=== PATIENT | female | born 1940 | race Caucasian/White ===

== ENCOUNTER 2020-03-17 12:47 | Observation (INO) | payer MEDICARE, SELFPAY ==
[2020-03-17] VITALS (7 sets, daily range): BP systolic 128–162; BP diastolic 49–67; PULSE 60–88; RESP 15–20; TEMP 36.7–36.9; O2SAT 95–99; BMI 24.2
--- NOTE | ~2020-03-17 | XR_ITS ---
XR wrist LT min 3V DATE: 03/17/2020 13:38 INDICATION: Fall. Left wrist deformity TECHNIQUE: 4 views COMPARISON: None FINDINGS: There is a comminuted intra-articular fracture of the distal radius with approximately 3 mm dorsal displacement and prominent apex anterior angulation with associated prominent dorsal angulati on of the distal radial articular surface. There is laterally displaced fracture of the ulnar styloid process Diffuse osteopenia IMPRESSION: Comminuted intra-articular fracture distal radius with 3 mm dorsal displacement and promi nent dorsal inclination of the distal radial articular surface Fracture of the ulnar styloid process Reviewed, dictated and finalized at location A. IMPRESSION: Comminuted intra-articular fracture distal radius with 3 mm dorsal displacement and prominent dorsal inclination of the distal radial articular choudhury rface Fracture of the ulnar styloid process
--- NOTE | ~2020-03-17 | XR_ITS ---
XR wrist LT 2V DATE: 03/17/2020 16:49 INDICATION: Postoperative reduction examination TECHNIQUE: AP and lateral views COMPARISON: Prereduction 03/17/2020 left wrist FINDINGS: There is reduction of the dorsal displacement at the comminuted intra-articular fracture of the distal radius. However, there is still prominent dorsal in relation of the distal radial articul ar surface. Diminished lateral displacement of the ulnar styloid process. IMPRESSION: Reduction of dorsal displacement of distal radial comminuted intra-articular fracture; pe rsistent dorsal inclination of distal radial articular surface Reviewed, dictated and finalized at location A. IMPRESSION: Reduction of dorsal displacement of distal radial comminuted intra- articular fracture; persistent dorsal inclination of distal radial articular choudhury rface
--- NOTE | ~2020-03-17 | XR_ITS ---
EXAMINATION: XR surgery orthopedic INDICATION: Closed reduction and fixation of the left wrist TECHNIQUE: Two intraoperative fluoroscopic images are submitted for review. Fluoroscopy exposure time was 14.8 seconds. The DAP for this procedure was [id number] [id number]. COMPARISON: 03/17/2020 FINDINGS: Fluoroscopic images demonstrate partially imaged orthopedic hardware in the distal radius. Previously described comminuted fracture of the distal radius and ulnar styloid avulsion are again no ev and not significantly changed. IMPRESSION: 1. Partially imaged orthopedic hardware in the distal radius with distal radius and ulnar fractures a s previously described. Please refer to procedure note for full details. Reviewed, dictated and finalized at location A. IMPRESSION: 1. Partially imaged orthopedic hardware in the distal radius with distal radius and ulnar fractures as previously described. Please refer to procedure note fo r full details.
--- NOTE | ~2020-03-17 | XR_ITS ---
EXAMINATION: XR chest 2V DATE: 03/17/2020 17:58 INDICATION: Atrial fibrillation. Preop. TECHNIQUE: Frontal and lateral views of the chest were obtained. COMPARISON: Chest 2 views 07/01/2018 FINDINGS: Calcified right lung nodules and calcified right hilar lymph nodes are consistent with old granulomatous disease. No pleural effusion or pneumothorax. The heart size is normal. Surgical clips in the right upper quadrant are likely from cholecystectomy. There is a chronic compression fracture of L1. IMPRESSION: 1. No acute cardiopulmonary disease. Reviewed, dictated and finalized at location A.
[2020-03-17] MEDS: MORPHINE SULFATE 4 MG/ML INJ IV PUSH (15:50)
--- NOTE | 2020-03-17 15:52 | ED.UPPEXIN ---
HPI - Extremity Injury (Upper) General Chief Complaint: Extremity Injury, Upper Stated Complaint: fall with lt wrist injury Time Seen by Provider: 03/17/20 14:50 History of Present Illness HPI narrative: Patient is a 79-year-old female who presents the ER with a left wrist injury. Patient was outside of her vehicle with her when she tripped over his leg and fell onto an outstretched hand. Sudden onset pain and deformity from the fall. Did not strike her head or lose consciousness. Is able to extend and flex her fingers but has modest pain. No numbness or tingling. Related Data Home Medications Medication Instructions Recorded Confirmed aspirin 325 mg tablet 325 mg PO DAILY 11/26/19 Allergies Allergy/AdvReac Type Severity Reaction Status Date / Time hydrocodone Allergy Unknown Abdominal Verified 10/18/19 11:26 Pain 1.PERCOCET Allergy Unknown Abdominal Uncoded 10/18/19 11:26 Pain NKFA Allergy Unknown Unknown Uncoded 10/18/19 11:26 OXYCODONE/ACETAMINOPHEN Allergy Unknown Abdominal Uncoded 10/18/19 11:26 (Generic Allergy) Pain Review of Systems Review of Systems: All systems reviewed & are unremarkable except as noted in HPI and below Constitutional: Constitutional: Denies chills, Denies fever(s) and Denies weakness Musculoskeletal: Musculoskeletal: Reports arthralgias Comments: Left wrist deformity Neurologic: Denies syncope, Denies focal weakness and Denies numbness PMF Past Medical History Medical History Chronic pain of left knee History of colon cancer History of depression History of uterine cancer Surgical History Surgical History History of hysterectomy Hx of total knee arthroplasty S/P cholecystectomy S/P colostomy Family History Family History Grandparent Hypertension, Onset Age: 72 Mother Family history of lung cancer Father Family history of malignant neoplasm of brain Other Carcinoma of colon Family history of malignant neoplasm of breast in first degree relative Family history of malignant neoplasm of cervix Social History Social History Smoking status: Never smoker Second hand tobacco smoke exposure: No Alcohol intake: current Drinks per week: 1 Substance use: never Substance use type: does not use Gender identity (if verbalized by the patient): Female Exam Narrative: Exam Narrative: GENERAL: Well-appearing, well-nourished, and in no acute distress. HEAD: Normocephalic, atraumatic. ENT: Mucous membranes moist. CHEST: Clear to auscultation. No respiratory distress. HEART: Regular rate and rhythm. Normal peripheral pulses. EXTREMITIES: Focused exam of the left upper extremity shows deformity at the wrist with normal range of motion of the fingers with flexion extension, normal radial pulse. No tenderness at the elbow with normal range of motion. SKIN: Warm, dry, no rash. NEURO: No focal deficits. Alert and oriented x3. PSYCH: Normal mood and affect. Course Course Emergency Course: Informed of results. Fracture reduced and splinted. Discussed case with Dr. Boggs who recommends admission for surgical fixation in the morning. Hospitalist consulted. Vital Signs Vital signs: Vital Signs Temperature 98.1 F 03/17/20 12:56 Pulse Rate 60 03/17/20 12:56 Respiratory Rate 20 03/17/20 12:56 Blood Pressure 154/53 H 03/17/20 12:56 Pulse Oximetry 99 03/17/20 12:56 Temperature 98.1 F 03/17/20 12:56 Pulse Rate 69 03/17/20 19:30 Respiratory Rate 15 03/17/20 19:30 Blood Pressure 148/49 H 03/17/20 19:30 Pulse Oximetry 96 03/17/20 19:30 Procedures Orthopedic Fracture Reduction Fracture #1: Fracture Reduction date: 03/17/20 Fracture Reduction time: 16:35 Time Out P
[2020-03-17] MEDS: MORPHINE SULFATE 2 MG/ML INJ 1 MG IV PUSH (16:30)
--- NOTE | 2020-03-17 17:38 | WPDANESEPP ---
Anes - Eval Pre Procedure Procedure: ORIF L distal radius fracture Date/Time: 03/17/20 17:38 Surgeon: Paul Preop Diagnosis: Left distal radius fracture Pre Op Diagnosis: fall with lt wrist injury Patient Data Age: 79 Gender: F Height: 1.55 m Weight: 58 kg Last Vital Signs Temp 36.7 C 03/17/20 12:56 Pulse 60 03/17/20 12:56 Resp 20 03/17/20 12:56 BP 154/53 H 03/17/20 12:56 Pulse Ox 99 03/17/20 12:56 Allergies Allergy/AdvReac Type Severity Reaction Status Date / Time hydrocodone Allergy Unknown Abdominal Verified 10/18/19 11:26 Pain 1.PERCOCET Allergy Unknown Abdominal Uncoded 10/18/19 11:26 Pain NKFA Allergy Unknown Unknown Uncoded 10/18/19 11:26 OXYCODONE/ACETAMINOPHEN Allergy Unknown Abdominal Uncoded 10/18/19 11:26 (Generic Allergy) Pain Home Medications Medication Instructions Recorded Confirmed Type aspirin 325 mg tablet 325 mg PO DAILY 11/26/19 History sulfamethoxazole 800 1 tablet PO Q12H #6 tablet 11/26/19 11/26/19 Rx mg-trimethoprim 160 mg tablet Patient hx anesthesia problems: none Family hx anesthesia problems: none PMFSH Past Medical History Medical History Chronic pain of left knee History of colon cancer History of depression History of uterine cancer Surgical History Surgical History History of hysterectomy Hx of total knee arthroplasty S/P cholecystectomy S/P colostomy Family History Family History Grandparent Hypertension, Onset Age: 72 Mother Family history of lung cancer Father Family history of malignant neoplasm of brain Other Carcinoma of colon Family history of malignant neoplasm of breast in first degree relative Family history of malignant neoplasm of cervix Social History Social History Smoking status: Never smoker Second hand tobacco smoke exposure: No Alcohol intake: current Drinks per week: 1 Substance use: never Substance use type: does not use Gender identity (if verbalized by the patient): Female Exam Day of Procedure 03/17/20 17:38 Patient weight: normal Heart: regular rate and rhythm Lungs: clear to auscultation and normal air movement Airway: Mallampati scale Neurological: alert and oriented
--- NOTE | 2020-03-17 17:41 | ECG_ITS ---
Measurements Intervals [place] Rate: 82 P: 96 TN: 157 QRS: -31 QRSD: 86 T: 55 QT: 365 QTc: 427 Interpretive Statements SINUS RHYTHM LEFT AXIS DEVIATION DELAYED PRECORDIAL R/S TRANSITION BASELINE ARTIFACT- I, II, III, AVF, V5-V6 BORDERLINE ECG Electronically Signed On 03-18-2020 7:15:36 CDT by Dino Knott D.O.
[2020-03-17 18:57] LABS: Basophils Percent Auto 0.2 % (0.2-1.2); Hematocrit 37.9 % (37.0-47.0); Hemoglobin 12.3 g/dL (12.0-15.0); Immature Granulocyte Absolute 0.03 K/mm3 (0.00-0.031); Immature Granulocyte Percent A 0.4 % (0-0.5); Lymphocytes Absolute Auto 0.65 K/mm3 (0.9-3.2); Lymphocytes Percent Auto 8.1 % (18.3-44.2); Mean Corpuscular HGB Conc 32.5 g/dl (32-36); Mean Corpuscular Hemoglobin 29.4 pg (26-34); Mean Corpuscular Volume 90.7 fl (80-100); Mean Platelet Volume 10.2 fl (7.4-10.4); Monocytes Absolute Auto 0.4 K/mm3 (0.1-0.6); Monocytes Percent Auto 5.3 % (2.6-8.5); Neutrophils Absolute Auto 6.9 K/mm3 (1.3-6.7); Platelet Count Result 251 k/mm3 (150-375); Red Blood Count 4.18 M/mm3 (4.2-5.4); White Blood Count 8.1 K/mm3 (4.5-10.0)
[2020-03-17 19:07] LABS: INR 1.1; Prothrombin Time 13.5 Seconds (11.1-14.7)
[2020-03-17 19:08] LABS: Partial Thromboplastin Time 27.1 SECONDS (22.3-36.8)
[2020-03-17 19:09] LABS: Blood Urea Nitrogen 12 mg/dL (7-17); Calcium 9.4 mg/dL (8.4-10.2); Carbon Dioxide 26 mmol/L (22-30); Chloride 102 mmol/L (98-107); Estimated CRCL calculation 57 ml/min; Estimated Glomerular Filt Rate > 60; Glucose 118 mg/dL (65-105); Potassium 4.3 mmol/L (3.4-5.0); Sodium 136 mmol/L (137-145)
--- NOTE | 2020-03-17 19:30 | PC.NURSE ---
Assumed care of pt at this time. Report from ODALYS Samuels
--- NOTE | 2020-03-17 20:27 | ADMGEN ---
This patient, Shanthi Grey, was admitted to [facility] Surg Room 306-01 at 2020. Patient/family oriented to hospital policies and general routines including ID bracelet, bed and alarms, visiting hours, pain management, procedures, bathroom and other care routines, personal items, smoking policy, room service/diet, and visiting hours. Valuables list has been completed. Information on how to activate the Rapid Response Team has been discussed. Patient/Family are encouraged to report perceived risks to care and to ask questions if they do not understand what they are told or what they should do.
[2020-03-17] MEDS: ONDANSETRON INJ 4 MG/2 ML VIAL IV PUSH (23:03)
[2020-03-18] VITALS (12 sets, daily range): BP systolic 120–140; BP diastolic 49–64; PULSE 64–84; RESP 12–24; TEMP 36.4–36.9; O2SAT 90–99
--- NOTE | 2020-03-18 07:13 | P.PNAN_ITS ---
Anes - Eval Final PreProcedure Day of Procedure 03/18/20 07:13 Patient weight: normal Heart: regular rate and rhythm Lungs: clear to auscultation Airway: Mallampati scale class II Neurological: alert and oriented Last oral intake: >/= 8 hours ASA classification: III Emergent: no Anesthetic plan: proceed Anesthesia type and monitoring: general LMA and standard monitoring Informed Consent: The patient's anesthetic plan and its attendant risks and b enefits were discussed with the patient/family/POA. Questions were solicited and answers provided to the satisfaction of the patient/family/POA.
--- NOTE | 2020-03-18 07:34 | PM.IMHP ---
H&P: HPI History of Present Illness Chief complaint: distal radius fracture Narrative: Shanthi Grey is a 79 year old female Who fell yesterday at home suffering a left distal radius fracture. She also abraded her right knee. She recently had a left total knee replacement about four months ago. No injury to that knee and no other injury with this. She did not hit her head so there is no loss of consciousness. She does not complain of any neck pain. 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 Review of Systems Constitutional: Constitutional: Reports no additional constitutional complaints, Denies excessive sweating and Denies fatigue Eyes: Eyes: Reports no additional eye complaints ENT: Reports system reviewed and no additional complaints, except as documented Cardiovascular: Cardiovascular: Denies chest pain at rest and Denies dyspnea Respiratory: Respiratory: Reports no additional respiratory complaints and Denies dyspnea Gastrointestinal: Gastrointestinal: Reports no additional gastrointestinal complaints Musculoskeletal: Musculoskeletal: Reports as per HPI Integumentary/Breasts: Skin/Breast: Reports system reviewed and no additional complaints, except as docu Neurologic: Reports as per HPI Endocrine: Endocrine: Denies excessive sweating and Denies fatigue Hematologic/Lymphatic: Hematologic/Lymphatic: Denies easy bleeding and Denies easy bruising PMFSH Past Medical History Medical History (Updated 03/18/20 @ 07:39 by Eliot Miller MD) Chronic pain of left knee History of colon cancer History of depression History of uterine cancer Surgical History Surgical History (Updated 03/18/20 @ 07:36 by Eliot Miller MD) History of hysterectomy Hx of total knee arthroplasty bilateral S/P cholecystectomy S/P colostomy Family History Family History Grandparent Hypertension, Onset Age: 72 Mother Family history of lung cancer Father Family history of malignant neoplasm of brain Other Carcinoma of colon Family history of malignant neoplasm of breast in first degree relative Family history of malignant neoplasm of cervix Sibling Tongue cancer Social History Social History Smoking status: Never smoker Second hand tobacco smoke exposure: No Alcohol intake: current Drinks per week: 3 Substance use: never Substance use type: does not use Gender identity (if verbalized by the patient): Female Sexual Orientation (if Verbalized by the Patient): Straight or Heterosexual Spiritual care concerns: No Meds Home Medications and Allergies Home Medications Medication Instructions Recorded Confirmed Type Calcium 600 + D(3) 1 tab-cap PO DAILY 03/17/20 03/17/20 History Glucosamine Chondroitin PLUS 1 cap PO DAILY 03/17/20 03/17/20 History ibuprofen 400 mg PO HS PRN 03/17/20 03/17/20 History ak-nw-SU-vit H-kbmfm-[id number]-[id number] 1 cap PO DAILY 03/17/20 03/17/20 History [Daily Multivitamin] paroxetine HCl 10 mg PO DAILY 03/17/20 03/17/20 History risperidone 0.25 mg PO BID 03/17/20 03/17/20 History Allergies Allergy/AdvReac Type Severity Reaction Status Date / Time hydrocodone Allergy Unknown Abdominal Verified 10/18/19 11:26 Pain oxycodone Allergy Abdominal Verified 03/18/20 00:29 Pain Vital Signs Vital Signs - 24 hr 03/17/20 12:56 03/17/20 16:32 03/17/20 18:32 Temperature 98.1 F Pulse Rate 60 69 76 Respiratory Rate 20 18 15 Blood Pressure 154/53 H 152/67 H 149/60 H Pulse Oximetry 99 97 96 03/17/20 19:30 03/17/20 20:13 03/17/20 20:20 Temperature 98.5 F Pulse Rate 69 88 69 Respiratory Rate 15 15 16 Blood Pressure 148/49 H 128/49 L 162/65 H Pulse Oxi
--- NOTE | 2020-03-18 07:50 | WPDANESPNB ---
Anes - Peripheral Nerve Block Date/Time: 03/18/20 07:50 I have discussed with the patient/family/POA the placement of a peripheral nerve block for post-operative pain management, including associated risks, benefits, complications, and side effects. Alternative methods of post-operative analgesia were detailed. Questions were solicited and answers provided to the satisfaction of the patient/family/POA. Time-Out: A pre-procedural Time-Out was completed immediately before starting the procedure and confirmed: Patient Identification, Site, Procedure, Patient Position and the Availability of Requisite Equipment. Clinical Indications: Acute post-operative pain management requested by the operative surgeon. Nerve Block Insertion Note Anes-nerve block: supraclavicular left Patient position: other (sitting) Skin prep: chlorhexidine Needle: 22 gauge, stimulating, insulated echogenic needle. Needle length: 50 mm Technique: nerve stimulation lost at (mA) (0.3) and ultrasound Injectate: bupivacaine 0.5% with epi 5 mcg/ml (30ml) and dexamethasone (mg) (4) Observations: tolerated well Complications: none Procedure start time:: 734 Procedure end time:: 742
--- NOTE | 2020-03-18 08:04 | PM.IMCN ---
Assessment and Plan Assessment and plan (1) Distal radius fracture, left: Qualifiers: Encounter type: initial encounter Fracture morphology: other intra-articular Fracture type: closed Qualified Code(s): S52.572A - Other intraarticular fracture of lower end of left radius, initial encounter for closed fracture Code(s): S52.502A - Unspecified fracture of the lower end of left radius, initial encounter for closed fracture Status: Acute (2) Fracture of ulnar styloid: Code(s): S52.613A - Displaced fracture of unspecified ulna styloid process, initial encounter for closed fracture Status: Acute (3) History of depression: Code(s): Z86.59 - Personal history of other mental and behavioral disorders Status: Acute HPI Data of Consult Consult date: 03/18/20 Requesting Physician: Eliot Miller MD Primary Care Provider: Santos Em MD Consult Narrative Narrative: Shanthi Grey is a 79 year old female Review of Systems Review of Systems: All systems reviewed & are unremarkable except as noted in HPI and below PMFSH Past Medical History Medical History (Updated 03/18/20 @ 08:06 by Roseann Cabrera PA-C) Chronic pain of left knee History of colon cancer History of depression History of uterine cancer Postoperative atrial fibrillation Surgical History Surgical History (Updated 03/18/20 @ 08:06 by Roseann Cabrera PA-C) History of hysterectomy Hx of hernia repair Hx of total knee arthroplasty bilateral S/P cholecystectomy S/P colostomy Family History Family History Grandparent Hypertension, Onset Age: 72 Mother Family history of lung cancer Father Family history of malignant neoplasm of brain Other Carcinoma of colon Family history of malignant neoplasm of breast in first degree relative Family history of malignant neoplasm of cervix Sibling Tongue cancer Social History Social History Smoking status: Never smoker Second hand tobacco smoke exposure: No Alcohol intake: current Drinks per week: 3 Substance use: never Substance use type: does not use Gender identity (if verbalized by the patient): Female Sexual Orientation (if Verbalized by the Patient): Straight or Heterosexual Spiritual care concerns: No Meds Home Medications and Allergies Home Medications Medication Instructions Recorded Confirmed Type Calcium 600 + D(3) 1 tab-cap PO DAILY 03/17/20 03/17/20 History Glucosamine Chondroitin PLUS 1 cap PO DAILY 03/17/20 03/17/20 History ibuprofen 400 mg PO HS PRN 03/17/20 03/17/20 History rq-io-YM-vit Z-jdmud-pmg-coQ10 1 cap PO DAILY 03/17/20 03/17/20 History [Daily Multivitamin] paroxetine HCl 10 mg PO DAILY 03/17/20 03/17/20 History risperidone 0.25 mg PO BID 03/17/20 03/17/20 History Allergies Allergy/AdvReac Type Severity Reaction Status Date / Time hydrocodone Allergy Unknown Abdominal Verified 10/18/19 11:26 Pain oxycodone Allergy Abdominal Verified 03/18/20 00:29 Pain Vital Signs Vital Signs - 24 hr 03/17/20 12:56 03/17/20 16:32 03/17/20 18:32 Temperature 98.1 F Pulse Rate 60 69 76 Respiratory Rate 20 18 15 Blood Pressure 154/53 H 152/67 H 149/60 H Pulse Oximetry 99 97 96 03/17/20 19:30 03/17/20 20:13 03/17/20 20:20 Temperature 98.5 F Pulse Rate 69 88 69 Respiratory Rate 15 15 16 Blood Pressure 148/49 H 128/49 L 162/65 H Pulse Oximetry 96 95 99 03/17/20 22:00 03/18/20 06:00 Temperature 98.5 F 97.8 F Pulse Rate 69 69 Respiratory Rate 16 16 Blood Pressure 162/65 H 120/49 L Pulse Oximetry 99 96 Exam Narrative: Exam Narrative: General: 79-year-old woman laying flat in bed. Appears comfortable. In no acute distress. Skin: No jaundice or cyanosis. Good skin turgor. Neck: Full range of motion. Supple. Nontender. Respirat
[2020-03-18] MEDS: BUPIVACAINE/EPINEPHRINE 0.25% 50 ML VIAL INFILTRATE (08:17)
[2020-03-18] MEDS: LACTATED RINGERS 1,000 ML 30 ML IV CONT (08:48)
--- NOTE | 2020-03-18 09:03 | P.OP_ITS ---
Procedure Note - Detailed Date of procedure: 03/18/20 Pre-op diagnosis: distal radius fracture Comminuted intra-articular left distal radius fracture Post-op diagnosis: same Procedure performed: Closed reduction and stabilization left distal radius fracture with external fixator device Description of procedure: The patient was identified and proper site identified. In the preoperative holding area anesthesia team performed a left upper extremity block. She was then taken to the operating room and transferred to the OR table placing her supine taking care to pad her torso and extremities. She was administered IV sedation. A nonsterile tourniquet was placed high on the left arm but was not used. The left upper extremity was prepped and draped in the usual sterile fashion. Several cc of 0.25% Marcaine and epinephrine solution was infiltrated into the subcutaneous tissue in the area of the pin sites over the distal forearm and dorsum of the hand as well as a small amount into the fracture site for a supplemental hematoma block. Under fluoroscopic visualization the fracture was examined. It was able to be lined up very nicely with very little distraction. Once this was accomplished, it was easy to see the prior fracture deformity with some residual dorsal tilt and slight loss of length and inclination. A short incision was made over the dorsal radial aspect of the distal radial shaft. Subcutaneous tissue was bluntly dissected protecting neurovascular structures. Using the pin guides, two pins from the [employer] ex Fix set were placed into the forearm. Under fluoroscopic control. The wound was irrigated and skin edges reapproximated with three 0 nylon suture. The same procedure was done over the second metacarpal shaft dorsal radially and with fluoroscopic visualization. Once the pins were in and the wounds were closed, the external fixator device was positioned and secured holding the fracture in the most reduced position, also with fluoroscopic assistance. Sterile dressing was applied the left upper extremity. She tolerated the procedure well and was taken back to the recovery area in stable condition. There were no known intra op complications. Estimated blood loss was negligible. She received perioperative antibiotics. Anesthesia: MAC and regional Surgeon: Eliot Miller MD Computer Discovery Teacher: Adilson Jacobs Estimated blood loss (mL): 2 Tourniquet time (min): 0 Drains: No Packing: No Pathology: none sent Complications: No immediate complications Condition: stable Disposition: PACU
--- NOTE | 2020-03-18 10:32 | SUR.OPER ---
pt received 2g ancef preoperatively ivpb given by power digger operator
[2020-03-18] MEDS: THERAPEUTIC MULTIVITAMINS/MINERALS TAB (*BKC) 1 TABLET PO (11:12)
[2020-03-18] MEDS: DOCUSATE SODIUM 100 MG CAPSULE PO (11:12)
[2020-03-18] MEDS: ASPIRIN 325 MG ENTERIC TABLET PO (11:12)
[2020-03-18] MEDS: FAMOTIDINE 20 MG TABLET PO (11:13)
== END 2020-03-18 16:30 | disposition home or self-care (01) ==
LOC: ANHED 18:59 → ANH3MEDSUR 19:49
PROVIDERS: Admitting Provider Orthopaedic Surgery; Emergency Provider Emergency Medicine; PCP Family Medicine; Visit Provider Orthopaedic Surgery
PROC: (CPT 20690; principal; 2020-03-18 07:30)
DX: S52.572A Other intraarticular fracture of lower end of left radius, initial encounter for closed fracture (principal); S52.612A Displaced fracture of left ulna styloid process, initial encounter for closed fracture; W01.0XXA Fall on same level from slipping, tripping and stumbling without subsequent striking against object, initial encounter; G89.18 Other acute postprocedural pain; Z79.899 Other long term (current) drug therapy; Z85.038 Personal history of other malignant neoplasm of large intestine; Z85.42 Personal history of malignant neoplasm of other parts of uterus; Z87.81 Personal history of (healed) traumatic fracture; Z96.653 Presence of artificial knee joint, bilateral
CPT/HCPCS: 20690; 25605; 64415; 36415; 71046; 73100; 73110; 80048; 85025; 85610; 85730; 93005; 96361; 96365; 96367; 96374; 96375; 96376; 99285; A9270; C1713; G0378; J0131; J0690; J1100; J2250; J2270; J2405; J2704; J3010; J7120

== ENCOUNTER → 2020-11-07 10:34 | Outpatient (CLI) | payer MEDICARE, SELFPAY ==
--- NOTE | ~2020-11-07 | MM_ITS ---
EXAMINATION: MM screening [facility] BI w [place] HISTORY: Screening mammogram TECHNIQUE: Craniocaudal and mediolateral oblique 3-D tomosynthesis images were obtained and synthetic 2-D images were generated. CAD analysis was submitted and interpreted. COMPARISON: 09/21/2019, 08/13/2018, 07/30/2017 BREAST PARENCHYMAL COMPOSITION: There are scattered areas of fibroglandular density. FINDINGS: RIGHT BREAST: An asymmetry is present in the middle third of the upper breast best appreciated 5.5 cm from the nipple on the mediolateral oblique view. LEFT BREAST: There is no evidence of suspicious mass, calcification, or architectural distortion to s uggest malignancy. There has been no significant interval change. IMPRESSION: 1. Right breast asymmetry. 2. Additional mammographic views and possible breast ultrasound are recommended. BI-RADS Category 0: Incomplete: Needs additional imaging evaluation. Reviewed, dictated and finalized at location A. ON GUARD SUPERVISOR IMPRESSION: 1. Right breast asymmetry. 2. Additional mammographic views and possible breast ultrasound are recommended . BI-RADS Category 0: Incomplete: Needs additional imaging evaluation.
== END ==
PROVIDERS: PCP Family Medicine; Visit Provider Family Medicine
DX: Z12.31 Encounter for screening mammogram for malignant neoplasm of breast (principal); R92.8 Other abnormal and inconclusive findings on diagnostic imaging of breast
CPT/HCPCS: 77063; 77067

== ENCOUNTER → 2020-11-30 08:42 | Outpatient (CLI) | payer MEDICARE, SELFPAY ==
--- NOTE | ~2020-11-30 | MMUS_ITS ---
EXAMINATION: MM diagnostic mammo unilat RT, US breast RT limited HISTORY: Right breast asymmetry on screening mammogram TECHNIQUE: Additional 3-D tomosynthesis images of the right breast were performed and synthetic 2-D i mages were generated. CAD analysis was submitted and interpreted. High resolution limited right breas t ultrasound was performed. COMPARISON: 11/07/2020, 09/21/2019, 08/13/2018 FINDINGS: MAMMOGRAPHIC FINDINGS: No discrete mass, architectural distortion, or suspicious calcification is identified with spot compr ession views of the breast. ULTRASOUND: No sonographic correlate is identified for the mammographic finding in question. There are benign radha earing intramammary lymph nodes in the far outer breast at the 9:00 location. IMPRESSION: 1. No mammographic or sonographic evidence of malignancy. 2. Recommend routine screening mammography in one year. BI-RADS Category 1: Negative Reviewed, dictated and finalized at location A. NIGHT STOCKER IMPRESSION: 1. No mammographic or sonographic evidence of malignancy. 2. Recommend routine screening mammography in one year. BI-RADS Category 1: Negative
== END ==
PROVIDERS: PCP Family Medicine; Visit Provider Family Medicine
DX: R92.8 Other abnormal and inconclusive findings on diagnostic imaging of breast (principal)
CPT/HCPCS: 76642; 77065

== ENCOUNTER → 2021-11-09 14:51 | Outpatient (CLI) | payer MEDICARE, SELFPAY ==
--- NOTE | ~2021-11-09 | MM_ITS ---
EXAMINATION: MM screening sherri BI w constantino HISTORY: Screening TECHNIQUE: Craniocaudal and mediolateral oblique 3-D tomosynthesis images were obtained and synthetic 2-D images were generated. CAD analysis was submitted and interpreted. COMPARISON: Comparison to multiple prior studies sequentially, with oldest reviewed study dated 02/2016. BREAST PARENCHYMAL COMPOSITION: Breast composed of scattered areas of fibroglandular density FINDINGS: There are developing irregular shaped masses in the upper outer quadrant of the right breas t, middle third and lower central left breast, middle third. There are no suspicious calcifications o r architectural distortion. IMPRESSION: 1. Developing bilateral breast masses. 2. Additional mammographic views and possible breast ultrasound are recommended. BI-RADS Category 0: Incomplete: Needs additional imaging evaluation. Reviewed, dictated and finalized at location A. LINER IMPRESSION: 1. Developing bilateral breast masses. 2. Additional mammographic views and possible breast ultrasound are recommended . BI-RADS Category 0: Incomplete: Needs additional imaging evaluation.
== END ==
PROVIDERS: PCP Family Medicine; Visit Provider Family Medicine
DX: Z12.31 Encounter for screening mammogram for malignant neoplasm of breast (principal); R92.8 Other abnormal and inconclusive findings on diagnostic imaging of breast
CPT/HCPCS: 77063; 77067

== ENCOUNTER → 2021-11-26 09:15 | Outpatient (CLI) | payer MEDICARE, SELFPAY ==
--- NOTE | ~2021-11-26 | MMUS_ITS ---
EXAMINATION: MM diagnostic sherri BI w constantino, US breast LT complete, US breast RT limited HISTORY: Developing bilateral breast masses reported on November 09, 2021 screening mammogram TECHNIQUE: Additional 3-D tomosynthesis images of both breasts were performed and synthetic 2-D image s were generated. CAD analysis was submitted and interpreted. High resolution right upper and lower o uter quadrant breast ultrasound and left complete breast ultrasound examination were performed. COMPARISON: November 09, 2019 bilateral screening mammogram November 30, 2020 diagnostic right mammogram and limited right breast ultrasound November 07, 2020 bilateral screening mammogram FINDINGS: MAMMOGRAPHIC FINDINGS: There is nodular appearing fibroglandular stroma of the breasts with possible masses suggested in the mid to upper outer right breast and lower mid left breast. Bilateral breast ultrasound examination w as performed. ULTRASOUND: Right breast: 9:00 10 cm from nipple: Mildly irregular slightly spiculated 3.8 x 4.4 mm x 4.7 mm mass with internal vascularity. This lesion is suspicious. Ultrasound-guided biopsy is recommended. There is an adjacent 3.8 x 4.9 x 6.4 mm lymph node. 10:00 7 cm from nipple: 2.0 x 2.4 mm parallel hypoechoic lesion without internal vascularity or poste rior shadowing Left breast: 5:00 1 cm from nipple: 3.6 x 2.9 x 3.6 mm mildly irregular incompletely circumscribed hypoechoic lesi on without internal vascularity or shadowing. Ultrasound-guided biopsy is recommended. IMPRESSION: 1. Bilateral suspicious abnormality 2. Ultrasound-guided biopsy is recommended for right breast 9:00 lesion and left breast 5:00 lesion. BI-RADS category 4, suspicious findings. Dr. Lorenzana telephoned the report and ultrasound-guided biopsy recommendation for both breasts on 2021 at 1038 hours to Nayely, Nurse Practitioner. Reviewed, dictated and finalized at location A. NUT COOKER IMPRESSION: 1. Bilateral suspicious abnormality 2. Ultrasound-guided biopsy is recommended for right breast 9:00 lesion and lef t breast 5:00 lesion. BI-RADS category 4, suspicious findings. Dr. Lorenzana telephoned the report and ultrasound-guided biopsy recommendation for both breasts on November 26, 2021 at 1038 hours to Nayely Nurse Practitioner. IMPRESSION: 1. Bilateral suspicious abnormality 2. Ultrasound-guided biopsy is recommended for right breast 9:00 lesion and lef t breast 5:00 lesion. BI-RADS category 4, suspicious findings. Dr. Lorenzana telephoned the report and ultrasound-guided biopsy recommendation for both breasts on November 26, 2021 at 1038 hours to Nayely Nurse Practitioner.
== END ==
PROVIDERS: PCP Family Medicine; Visit Provider Physician Assistant
DX: R92.8 Other abnormal and inconclusive findings on diagnostic imaging of breast (principal); N63.11 Unspecified lump in the right breast, upper outer quadrant; N63.23 Unspecified lump in the left breast, lower outer quadrant
CPT/HCPCS: 76641; 76642; 77062; 77066; G0279

== ENCOUNTER 2021-12-11 09:12 | Outpatient (CLI) | payer MEDICARE, SELFPAY ==
--- NOTE | ~2021-12-11 | US_ITS ---
US breast BI limited 12/11/2021 10:05 Indication: Bilateral breast masses demonstrated on prior examination. Biopsy requested. Procedure: High-resolution Limited bilateral breast ultrasound Comparison: Ultrasound dated 11/26/2021 Findings: In the left breast at 5:00, 1 cm from the nipple there is an oval circumscribed hypoechoic mass with parallel orientation, subtle posterior acoustic enhancement and low-level internal echoes. No internal vascularity. In the right breast at 9:00, 10 cm from the nipple there are 2 adjacent oval hypoechoic masses with echogenic hilum, largest measuring 5 mm, this likely benign intramammary lymp h nodes. Masses in both breasts are most likely benign and therefore biopsy canceled. Short-term foll ow-up ultrasound in 6 months recommended. Impression: 1: Probable benign bilateral breast masses. BI-RADS CATEGORY 3-PROBABLY BENIGN FINDING RECOMMENDATION: Six-month follow-up diagnostic bilateral mammogram and limited bilateral breast ultra sound recommended. Reviewed, dictated and finalized at location A. TRANSIT DRIVER Impression: 1: Probable benign bilateral breast masses. BI-RADS CATEGORY 3-PROBABLY BENIGN FINDING RECOMMENDATION: Six-month follow-up diagnostic bilateral mammogram and limited bilateral breast ultrasound recommended.
== END 2021-12-11 09:13 | disposition home or self-care (01) ==
LOC: ANHIMG 09:14
PROVIDERS: PCP Family Medicine; Visit Provider Nurse Practitioner Family
DX: N63.23 Unspecified lump in the left breast, lower outer quadrant (principal); N63.15 Unspecified lump in the right breast, overlapping quadrants
CPT/HCPCS: 76642

== ENCOUNTER → 2022-06-13 08:41 | Outpatient (CLI) | payer MEDICARE, SELFPAY ==
--- NOTE | ~2022-06-13 | MMUS_ITS ---
EXAMINATION: MM diagnostic sherri BI w constantino, US breast BI limited HISTORY: Six-month follow-up of probable benign bilateral breast masses, on the left at 5:00 1 cm fro m the nipple and on the right at 9:00 10 cm from the nipple TECHNIQUE: Full field and spot ML, MLO and CC 3-D tomosynthesis images of both breasts were performed and synthetic 2-D images were generated. CAD analysis was submitted and interpreted. High resolution bilateral upper outer and lower-outer quadrant breast ultrasound was performed. COMPARISON: 12/11/2021 bilateral Limited breast ultrasound To bilateral diagnostic mammography and bilateral breast ultrasound 11/2021 bilateral screening mammogram BREAST PARENCHYMAL COMPOSITION: There are scattered areas of fibroglandular density. FINDINGS: MAMMOGRAPHIC FINDINGS: Left breast: There is an irregular hypodensity approximately 3 x 4.5 mm opacity in the lower outer le ft breast at mid depth (craniocaudal Tomosynthesis image 27/60; MLO Tomosynthesis image 27/60, MLO To mosynthesis image 20/54). No suspicious reproducible mass or architectural distortion, malignant constipation, skin thickening or retraction or significant new or developing density of either breast is noted otherwise. ULTRASOUND: Left breast: 5:00 areolar area: Irregular approximately 5 mm hypoechoic area; ultrasound-guided biopsy is recommen ded. Right breast: 9:00 10 cm from nipple: Parallel circumscribed 4 x 5 x 4.8 mm and 3.6 x 5.6 x 7 mm benign-appearing l ymph nodes. IMPRESSION: 1. Irregular approximately 5 mm hypoechoic lesion at left breast 5:00 1 cm from nipple 2. Ultrasound-guided biopsy of left breast 5:00 lesion is recommended; post biopsy mammogram after ma rker placement is recommended to correlate with the mammogram to determine if this sonographic lesion corresponds to the small irregular mammographic opacity at mid depth in the lower outer quadrant of the left breast BI-RADS category 4, suspicious findings. Dr. Lorenzana telephoned the report and ultrasound-guided biopsy recommendation on 06/2022 at 1030 hours shirlene Barfield, Stitch Bonding Machine Tender Reviewed, dictated and finalized at location A. IMPRESSION: 1. Irregular approximately 5 mm hypoechoic lesion at left breast 5:00 1 cm from nipple 2. Ultrasound-guided biopsy of left breast 5:00 lesion is recommended; post bio psy mammogram after marker placement is recommended to correlate with the mammo gram to determine if this sonographic lesion corresponds to the small irregular mammographic opacity at mid depth in the lower outer quadrant of the left all st BI-RADS category 4, suspicious findings. Dr. Lorenzana telephoned the report and ultrasound-guided biopsy recommendation on at 1030 hours to Frederick Barfield
== END ==
PROVIDERS: PCP Family Medicine; Visit Provider Physician Assistant
DX: R92.8 Other abnormal and inconclusive findings on diagnostic imaging of breast (principal); N63.23 Unspecified lump in the left breast, lower outer quadrant
CPT/HCPCS: 76642; 77062; 77066; G0279

== ENCOUNTER 2022-07-02 09:06 | Outpatient (CLI) | payer MEDICARE, SELFPAY ==
--- NOTE | ~2022-07-02 | US_ITS ---
EXAMINATION: US GUIDED NEEDLE BIOPSY DATE: 07/02/2022 10:27 CDT INDICATION: Left breast 5 mm irregular mass at 5:00 TECHNIQUE AND FINDINGS: The risks and potential benefits of the procedure were discussed with the patient, and written inform ed consent was obtained. Timeout procedure was performed. After sterile preparation of the left breas t, 1% lidocaine was utilized for local anesthesia. A 14G spring-loaded biopsy gun needle was advanced to the edge of the region of interest from a later al approach utilizing sonographic guidance. A total of 4 tissue core samples were obtained through t he lesion. An Inrad tissue marker clip was then placed at the biopsy site. Hemostasis was achieved. A sterile bandage was applied. The patient tolerated procedure well and there was no evidence of immediate complication. The patien t was given verbal instructions prior to departing from the department. A two view mammogram was perf ormed to document tissue marker clip placement. The tissue samples were submitted to surgical patholo gy for histologic analysis. IMPRESSION: 1. Successful ultrasound guided biopsy of left 5:00 breast mass with biopsy marker placement. Please refer to pathology report for histologic analysis. Reviewed, dictated and finalized at Location A. Reviewed, dictated and finalized at location A. IMPRESSION: 1. Successful ultrasound guided biopsy of left 5:00 breast mass with biopsy ma rker placement. Please refer to pathology report for histologic analysis.
--- NOTE | ~2022-07-02 | MM_ITS ---
MM post biopsy invasive LT DATE: 07/02/2022 10:17 INDICATION: Post ultrasound-guided biopsy of left 5:00 lesion TECHNIQUE: Digital ML and CC views of left breast COMPARISON: None FINDINGS: A biopsy marker is present in the lower central left breast IMPRESSION: Status post ultrasound-guided biopsy of 5:00 left breast sonographic hypoechoic 5 mm lesi on Reviewed, dictated and finalized at Location A. Reviewed, dictated and finalized at location A. IMPRESSION: Status post ultrasound-guided biopsy of 5:00 left breast sonographi c hypoechoic 5 mm lesion
== END 2022-07-02 09:07 | disposition home or self-care (01) ==
PROVIDERS: PCP Family Medicine; Visit Provider Surgery
DX: C50.012 Malignant neoplasm of nipple and areola, left female breast (principal)
CPT/HCPCS: 19083; 88305; 88342; 88360; A4648

== ENCOUNTER 2022-08-21 00:49 | Day surgery (SDC) | payer MEDICARE, SELFPAY ==
[2022-08-08 13:58] VITALS: BMI 23.8
--- NOTE | 2022-08-08 14:14 | PC.NURSE ---
PRE-OP INSTRUCTIONS, PLEASE READ CAREFULLY Report to the Outpatient Waiting Room, entrance under the green pavilion located off [facility], at time _1030_ on date _08/21/22_. Planned Procedure Time: _1:30 PM_. Time changes happen often and if your time is changed the preop area will call you the afternoon before. - You and your visitor will be asked to self-screen and do not enter if you have any COVID symptoms. - We encourage only one visitor and NO visitors under age 16 are allowed at this time. Your visitor will receive communication by the phone number that is given day of service. - The patient visitor is requested to social distance or may leave the building when not with patient due to restrictions. - A mask is required within the hospital. Patients may have clear liquids (water, carbonated beverages, clear teas, apple juice) until 3 hours prior to surgery (1030 AM) with a maximum of 20 ounces. - No food from midnight until time of surgery Take the following medications with a SIP of water the morning of surgery: _NONE_ Medications to discontinue per physician _VITAMINS/SUPPLEMENTS 3 DAYS PRIOR TO SURGERY, Date to take last dose 08/17/22_ Please no make-up, nail sammarinese, hairspray, perfume, deodorant, or body powder the day of surgery. No jewelry (including any body piercings) or valuables the day of surgery, leave them at home. Please take a shower or bath the night before, or the morning of, surgery with an antibacterial soap. Wear comfortable, loose fitting clothing. Children are encouraged to wear pajamas. - Jewelry must be removed prior to entering the operating room. Rings and piercings that are not removed may be cut off. - The hospital will not accept responsibility for valuables. - Please leave all valuables, including medications, at home the day of surgery. If you are going home after surgery, a licensed rickshaw driver must drive you home. - NO public transportation without another adult. - We recommend that an adult stay with you for 24 hours following discharge. - We also recommend that you do not drive, make important decision, drink alcoholic beverages, or take any drugs that were not prescribed by your health care provider for at least 24 hours after your discharge time. Follow any additional instructions given to you from your surgeon. BARBARA SHOWER AM OF SURGERY If you or anyone in your household have experienced Covid symptoms in the past week, please notify your surgeon or the nurse liaison at the phone number below for possible testing. Telephone instructions given to PT and asked if any additional questions and then verbalized understanding. Patient advised to call surgeon office or pre surgery nurse liaison [phone] if any additional questions.
[2022-08-21] VITALS (9 sets, daily range): BP systolic 139–159; BP diastolic 52–72; PULSE 55–74; RESP 16–22; TEMP 36.5; O2SAT 96–100
--- NOTE | ~2022-08-21 | MM_ITS ---
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 TECHNIQUE: The procedure for a mammography-guided needle localization was discussed with the patient' s. Risks and benefits were detailed, including risks of bleeding, infection, pain, and nondiagnostic specimen. The patient verbalized understanding and agreed to proceed. The time out was performed to verify the patient's name, date of , and site of procedure. The p atient was placed in left breast compression, and the skin overlying the left breast was prepped in u sual fashion. Utilizing mammography guidance, a needle was advanced into the left breast. Two confi rmatory films were obtained. The patient tolerated procedure without immediate complication. A specimen radiograph was performed. FINDINGS: Two view confirmatory films of the left breast demonstrate a the wire adjacent to the tissu e marker. The tissue marker is contained within the surgical specimen.] IMPRESSION: 1. Successful mammography-guided left breast needle localization. Reviewed, dictated and finalized at location A. ENGINEERING TEACHER IMPRESSION: 1. Successful mammography-guided left breast needle localization.
--- NOTE | 2022-08-21 07:26 | WPDANESEPPF ---
Anes - Initial Pre Proc Eval Procedure: Operation Date: 08/21/22 13:30 Proposed Procedures p Left Breast Lumpectomy with [place] Lymph Node Biopsy - Dany Warner DO s Ultrasound and/or Mammogram Guided Needle Localization Left Breast - Dany Warner DO Date/Time: 08/21/22 07:26 Surgeon: Dany Warner DO Pre Op Diagnosis: Lt Breast CA Patient Data Age: 81 Gender: F Height: 1.56 m Weight: 58.18 kg Allergies Allergy/AdvReac Type Severity Reaction Status Date / Time No Known Allergies Allergy Verified 08/21/22 10:44 Home Medications Medication Instructions Recorded Confirmed Type calcium carb-ergocalciferol (vit 1 tablet PO QAM 08/08/22 08/21/22 History D2) 600 mg calcium-200 unit tablet glucosamine sulf dipot 1 cap PO QAM 08/08/22 08/21/22 History chlr,msm,chond 550 mg-C 30 mg-shad 1 mg capsule (Glucosamine Chondroitin) multivitamin 1 tablet PO QAM 08/08/22 08/21/22 History Patient hx anesthesia problems: none Family hx anesthesia problems: none Results Review: All pre-operative results and documents have been reviewed as part of the pre-operative evaluation. [facility] Past Medical History Medical History (Updated 08/21/22 @ 07:28 by Del Cm MD) Atrial fibrillation postoperative BMI 23.0-23.9, adult Chronic pain of left knee Colorectal cancer History of colon cancer History of depression History of uterine cancer Invasive ductal carcinoma of left breast Postoperative atrial fibrillation Uterine cancer Surgical History Surgical History Distal radius fracture, left External fixator March 2020 History of hysterectomy Hx of hernia repair Hx of total knee arthroplasty bilateral S/P cholecystectomy S/P colostomy Family History Family History Grandparent Hypertension, Onset Age: 72 Mother Family history of lung cancer Father Family history of malignant neoplasm of brain Other Carcinoma of colon Family history of malignant neoplasm of breast in first degree relative Family history of malignant neoplasm of cervix Sibling Tongue cancer Social History Social History (Reviewed 08/12/22 @ 14:27 by MERCY Bobo Social History: Smoking status: Never smoker Second hand tobacco smoke exposure: No Alcohol intake: current Drinks per week: 3 Alcohol use details: PT STATE MAYBE 1-2 DRINKS/MONTH Substance use: never Substance use type: does not use Living arrangements: with family Gender identity (if verbalized by the patient): Female Sexual Orientation (if Verbalized by the Patient): Straight or Heterosexual Spiritual care concerns: No Anes - Eval Final PreProcedure Day of Procedure 08/21/22 07:26 Patient weight: normal Heart: regular rate and rhythm Lungs: clear to auscultation Airway: Mallampati scale class II Neurological: alert and oriented Last oral intake: >/= 8 hours ASA classification: III Emergent: no Anesthetic plan: proceed Anesthesia type and monitoring: general LMA and standard monitoring Results Review: All pre-operative results and documents have been reviewed as part of the pre-operative evaluation. Informed Consent: The patient's anesthetic plan and its attendant risks and benefits were discussed with the patient/family/POA. Questions were solicited and answers provided to the satisfaction of the patient/family/POA.
[2022-08-21] MEDS: ACETAMINOPHEN 500 MG TABLET 1000 MG PO (11:26)
[2022-08-21] MEDS: LACTATED RINGERS 1,000 ML 30 ML IV CONT (11:26)
[2022-08-21] MEDS: ISOSULFAN BLUE 1% INJ 5 ML VIAL SUB-Q (12:17)
[2022-08-21] MEDS: KETOROLAC 15 MG/ML VIAL (*BKC) IV PUSH (12:43)
--- NOTE | 2022-08-21 12:58 | WPDHPUPDATE1 ---
History and Physical Update Update Date/Time: 08/21/22 12:58 History and Physical has been reviewed, including an updated exam of the patient. There are NO changes in the patient's condition. Risks, benefits, and alternatives have been discussed and questions answered. Patient agrees to proceed with procedure.
--- NOTE | 2022-08-21 12:58 | PM.IMHP ---
H&P: HPI History of Present Illness Date/Time: 08/21/22 12:58 Chief Complaint: Left breast cancer Narrative: This is an 81-year-old woman who presents for lumpectomy and sentinel lymph node biopsy. She had a prior abnormal mammogram and underwent needle biopsy which showed evidence of invasive ductal carcinoma. She reports no changes since last seen in the office. Review of Systems Review of Systems: All systems reviewed & are unremarkable except as noted in HPI and below Constitutional: Constitutional: Denies chills, Denies fever(s), Denies headache(s) and Denies weight loss Eyes: Eyes: Denies change in vision ENT: Denies dizziness, Denies headache(s), Denies neck mass and Denies throat swelling Cardiovascular: Cardiovascular: Denies chest pain, Denies lightheadedness and Denies dyspnea Respiratory: Respiratory: Denies cough, Denies dyspnea and Denies wheezing Gastrointestinal: Gastrointestinal: Denies abdominal pain, Denies change in bowel habits, Denies nausea and Denies vomiting Genitourinary: Genitourinary: Denies hematuria and Denies dysuria Musculoskeletal: Musculoskeletal: Reports as per HPI Integumentary/Breasts: Skin/Breast: Reports as per HPI Neurologic: Denies dizziness and Denies headache(s) Allergic/Immunologic: Allergic/Immunologic: Denies throat swelling and Denies wheezing [facility] Past Medical History Medical History (Updated 08/21/22 @ 07:28 by Del Cm MD) Atrial fibrillation postoperative BMI 23.0-23.9, adult Chronic pain of left knee Colorectal cancer History of colon cancer History of depression History of uterine cancer Invasive ductal carcinoma of left breast Postoperative atrial fibrillation Uterine cancer Surgical History Surgical History Distal radius fracture, left External fixator March 2020 History of hysterectomy Hx of hernia repair Hx of total knee arthroplasty bilateral S/P cholecystectomy S/P colostomy Family History Family History Grandparent Hypertension, Onset Age: 72 Mother Family history of lung cancer Father Family history of malignant neoplasm of brain Other Carcinoma of colon Family history of malignant neoplasm of breast in first degree relative Family history of malignant neoplasm of cervix Sibling Tongue cancer Social History Social History Social History: Smoking status: Never smoker Second hand tobacco smoke exposure: No Alcohol intake: current Drinks per week: 3 Alcohol use details: PT STATE MAYBE 1-2 DRINKS/MONTH Substance use: never Substance use type: does not use Living arrangements: with family Gender identity (if verbalized by the patient): Female Sexual Orientation (if Verbalized by the Patient): Straight or Heterosexual Spiritual care concerns: No Meds Home Medications and Allergies Home Medications Medication Instructions Recorded Confirmed Type calcium carb-ergocalciferol (vit 1 tablet PO QAM 08/08/22 08/21/22 History D2) 600 mg calcium-200 unit tablet glucosamine sulf dipot 1 cap PO QAM 08/08/22 08/21/22 History chlr,msm,chond 550 mg-C 30 mg-shad 1 mg capsule (Glucosamine Chondroitin) multivitamin 1 tablet PO QAM 08/08/22 08/21/22 History Allergies Allergy/AdvReac Type Severity Reaction Status Date / Time No Known Allergies Allergy Verified 08/21/22 10:44 Vital Signs Vital Signs - 24 hr 08/21/22 10:56 Temperature 36.5 C Pulse Rate 66 Respiratory Rate 16 Blood Pressure 152/52 H Pulse Oximetry 100 Oxygen Delivery Room Air Exam Const: General: no acute distress and alert Orientation/consciousness: patient oriented x3 HENMT: Head: normocephalic and atraumatic Ears: hearing grossly normal bilaterally Face/Nose/Sinus: Normal nares present Mout
[2022-08-21] MEDS: BUPIVACAINE HCL 0.25% PF 30 ML VIAL INFILTRATE (13:17)
[2022-08-21] MEDS: ceFAZolin 2 GM/D5W 50 ML 2 GM/50 ML BAG IVPB (13:17)
[2022-08-21] MEDS: ONDANSETRON INJ 4 MG/2 ML VIAL IV PUSH (15:34)
--- NOTE | 2022-08-21 16:51 | W.PM.PROC2 ---
Procedure Note - Detailed Date of Procedure 08/21/22 Pre-op Diagnosis Lt Breast CA Post-op Diagnosis Same Procedure Performed Left breast wire localized lumpectomy with left axillary sentinel lymph node biopsy Surgeon Dany Warner, DO Anesthesia General and Local (0.25% bupivacaine with epinephrine) Indications This is an 81-year-old woman who presented with an abnormal mammogram. She had an irregular shaped a 5 mm lesion in the left breast in the 5 o'clock location. An ultrasound-guided left breast biopsy was performed and this showed evidence of invasive ductal carcinoma. Discussions were made with the patient about treatment options and decision was made to proceed with left breast lumpectomy with left axillary sentinel lymph node biopsy. Findings Wire localization was performed by the Radiology Department. Nuclear isotope was then also infiltrated in the periareolar region. Once the patient was back for the procedure under anesthesia, I also infiltrated 4 mL of isosulfan blue in the periareolar region. I reviewed the images from the wire localization and planned for a periareolar incision. The wire was coming out of the skin in the medial breast location, therefore the incision was made along the medial periareolar skin. I then dissected down to the breast tissue until identified the wire. The lumpectomy was then performed and care was taken to stay around the wire while dissecting around the tissue. The specimen was then marked with a short suture superior and long suture lateral. The specimen was sent to Radiology for radiographic confirmation of the marker within the specimen. This was confirmed and then the specimen was sent to pathology. The left axillary sentinel lymph node was identified using the navigator. As I dissected into the deep axillary contents, I eventually was able to identify a blue lymph node in the location of increased uptake with the navigator. The navigator was reading around 700 and once the lymph node was removed the baseline uptake was only around 30-40. No other lymph nodes were identified. Description of Procedure Procedure as well as risks, benefits, and alternatives were discussed with the patient. Written consent was obtained and placed in chart prior to procedure. The patient was brought back to surgical suite. She was placed supine on operating table. Time-out was done to confirm patient and procedure. She was then intubated by the anesthesia department. Isosulfan blue was infiltrated locally around the nipple areola complex. Her left breast and axillary area was prepped and draped in sterile fashion using chlorhexidine prep. 0.25% bupivacaine with epinephrine was infiltrated locally around the location for the lumpectomy. A 4 cm curvilinear incision was made along the medial nipple areola complex using a 15 blade scalpel. Electrocautery was used for hemostasis and for dissection through the subcutaneous tissue down into the breast tissue. I dissected down until identified the wire. The wire was cut and the excess wire that was coming out through the skin was removed. The tissue around the guidewire was then carefully dissected using electrocautery to perform our lumpectomy. This tissue extended to the subareolar region and just lateral to the nipple areola complex. I carefully dissected all around the tissue and took a specimen large enough to allow for adequate margins. The specimen was completely removed and marked with a short suture superior and long suture lateral. It was then sent to Radiology for confirmation of the specimen. The wound bed was then inspected. Hemostasis was achieved with electrocautery. The area was then irrigated with sterile saline. The deep dermis was then reapproximated using 3-0 Vicryl inverted interrupted sutures. Skin was then approximated using 4-0 Monocryl running subcuticular suture. Exofin glue was then applied on top. I then moved my attention over to the lef
== END 2022-08-21 17:12 | disposition home or self-care (01) ==
PROVIDERS: PCP Family Medicine; Visit Provider Surgery
PROC: (CPT 19301; principal; 2022-08-21 13:30)
PROC: (CPT 19301; 2022-08-21 13:30)
DX: C50.912 Malignant neoplasm of unspecified site of left female breast (principal); C77.3 Secondary and unspecified malignant neoplasm of axilla and upper limb lymph nodes; Z85.038 Personal history of other malignant neoplasm of large intestine; Z85.42 Personal history of malignant neoplasm of other parts of uterus
CPT/HCPCS: 19301; 38525; 19281; 76098; 88307; 88342; A9270; C1713; C1769; J0690; J1885; J2405; J2704; J3010; J7120

== ENCOUNTER → 2022-12-16 13:41 | Outpatient (CLI) | payer MEDICARE, SELFPAY ==
--- NOTE | ~2022-12-16 | MM_ITS ---
EXAMINATION: MM screening sherri BI w constantino HISTORY: Screening mammogram TECHNIQUE: Craniocaudal and mediolateral oblique 3-D tomosynthesis images were obtained and synthetic 2-D images were generated. CAD analysis was submitted and interpreted. COMPARISON: Serial mammogram and ultrasound examinations dating back to November 07, 2020 BREAST PARENCHYMAL COMPOSITION: The breasts are heterogeneously dense, which may obscure small masses . FINDINGS: There is asymmetric volume loss and skin thickening of the of the left breast consistent wi th history of left partial mastectomy and radiation treatment. No focal mass or architectural distortion, malignant calcification is evident otherwise. No right ski n thickening or retraction. No significant new or developing density on the right.. IMPRESSION: 1. Status post left partial mastectomy and radiotherapy for breast cancer 2. Recommend routine screening mammography in one year. BI-RADS Category 2: Benign finding(s). Reviewed, dictated and finalized at location A.
== END ==
PROVIDERS: PCP Family Medicine; Visit Provider Internal Medicine Hematology & Oncology
DX: Z12.31 Encounter for screening mammogram for malignant neoplasm of breast (principal)
CPT/HCPCS: 77063; 77067

== ENCOUNTER 2023-03-31 09:44 | Outpatient (CLI) | payer MEDICARE, SELFPAY ==
--- NOTE | ~2023-03-31 | DEXA_ITS ---
Bone Density Report Name: WILIAM CORREA Age: 82 Sex: Female Ethnicity: White Date of : 1940 Indication: postmenopausal; screening for osteoporosis; height loss; prior fracture; cancer; hysterectomy; Referring Provider: MISTY STEVEN Study: Bone densitometry was performed. Exam Date: March 31, 2023 Accession number: [id number] Bone Density: Region BMD T-score Z-score Classification AP Spine(L1-L4) 1.003 -0.4 2.4 Normal Femoral Neck (Left) 0.773 -0.7 1.7 Normal Total Hip (Left) 0.842 -0.8 1.4 Normal Femoral Neck (Right) 0.753 -0.9 1.5 Normal Total Hip (Right) 0.829 -0.9 1.3 Normal Total Hip Mean 0.835 -0.9 1.4 Normal World Health Organization criteria for BMD impression classify patients as: Normal (T-score at or above -1.0), Osteopenia (T-score between -1.0 and -2.5), or Osteoporosis (T-score at or below -2.5). 10-year Fracture Risk: FRAX not reported because: All T-scores for Spine Total, Hip Total, Femoral Neck at or above -1.0 Clinical Information Provided by Patient: Has had a low trauma fracture Has used the following medications: Vitamin D, Calcium Has the following medical conditions: Cancer, Hysterectomy Patient maximum height was 62.5 Menopause Age: 50 Drinks caffeinated beverages Onset of menses at age 10 Number of children 4 Impression: The patient has normal bone mass. The patient has risk factors, including: previous fracture. Discussion: BONE DENSITY IS ABOVE THE MINIMUM DESIRABLE LEVEL AT ALL SKELETAL SITES TESTED. This patient?s bone mineral density is above the minimum desirable level (T-score -1.0 or better) at all sites measured. The patient should follow a healthful lifestyle (good nutrition with adequate calcium and vitamin D, and appropriate weight-bearing exercise). Follow-Up: Consider repeating this study in 5 years or sooner if there is some new clinical indication. Reported by: STACEY on 03/31/2023 10:09:00 AM. Reviewed, dictated and finalized at location AFrancois CERVANTES
== END 2023-03-31 09:45 | disposition home or self-care (01) ==
LOC: ANHIMG 09:45
PROVIDERS: PCP Family Medicine; Visit Provider Internal Medicine Hematology & Oncology
DX: M85.89 Other specified disorders of bone density and structure, multiple sites (principal)
CPT/HCPCS: 36415; 77080; 80053; 85025; 86300

== ENCOUNTER 2023-03-31 10:13 | Outpatient (CLI) | payer MEDICARE, SELFPAY ==
[2023-03-31 10:28] LABS: Basophils Percent Auto 0.5 % (0.2-1.2); Eosinophils Absolute Auto 0.1 K/mm3 (0-0.3); Eosinophils Percent Auto 2.1 % (0-4.4); Hematocrit 40.6 % (37.0-47.0); Hemoglobin 13.3 g/dL (12.0-15.0); Immature Granulocyte Absolute 0.01 K/mm3 (0.00-0.031); Immature Granulocyte Percent A 0.2 % (0-0.5); Lymphocytes Percent Auto 16.7 % (18.3-44.2); Mean Corpuscular HGB Conc 32.8 g/dl (32-36); Mean Corpuscular Hemoglobin 30.9 pg (26-34); Mean Corpuscular Volume 94.4 fl (80-100); Monocytes Absolute Auto 0.7 K/mm3 (0.1-0.6); Monocytes Percent Auto 15.5 % (2.6-8.5); Neutrophils Absolute Auto 2.7 K/mm3 (1.3-6.7); Platelet Count Result 232 k/mm3 (150-375); Red Cell Distribution Width 13.9 % (11.5-14.5); White Blood Count 4.2 K/mm3 (4.5-10.0)
[2023-03-31 11:59] LABS: Alanine Aminotransferase 18 U/L (6-35); Albumin Level 4.5 g/dL (3.5-5.1); Alkaline Phosphatase 79 U/L (38-126); Anion Gap 6 mmol/L (8-16); Aspartate Amino Transferase 28 U/L (14-36); Bilirubin,Total 0.4 mg/dL (0.2-1.3); Blood Urea Nitrogen 11 mg/dL (7-17); Carbon Dioxide 27 mmol/L (22-30); Chloride 103 mmol/L (98-107); Estimated Glomerular Filt Rate > 60; Glucose 86 mg/dL (65-110); Sodium 136 mmol/L (137-145)
[2023-03-31 12:05] LABS: Calcium 9.6 mg/dL (8.4-10.2); Potassium 4.3 mmol/L (3.4-5.0)
[2023-04-05 06:04] LABS: CA 15-3 11 U/mL (<32)
== END 2023-03-31 10:14 | disposition home or self-care (01) ==
LOC: ANHLAB 10:14
PROVIDERS: PCP Family Medicine; Visit Provider Internal Medicine Hematology & Oncology
DX: C50.212 Malignant neoplasm of upper-inner quadrant of left female breast (principal); Z17.0 Estrogen receptor positive status [ER+]
CPT/HCPCS: 36415; 80053; 85025; 86300

== ENCOUNTER 2023-07-30 11:18 | Outpatient (CLI) | payer MEDICARE, SELFPAY ==
[2023-07-30 11:37] LABS: Basophils Percent Auto 0.4 % (0.2-1.2); Eosinophils Absolute Auto 0.1 K/mm3 (0-0.3); Eosinophils Percent Auto 1.8 % (0-4.4); Hematocrit 40.8 % (37.0-47.0); Hemoglobin 13.2 g/dL (12.0-15.0); Immature Granulocyte Absolute 0.02 K/mm3 (0.00-0.031); Immature Granulocyte Percent A 0.4 % (0-0.5); Lymphocytes Absolute Auto 0.99 K/mm3 (0.9-3.2); Lymphocytes Percent Auto 18.1 % (18.3-44.2); Mean Corpuscular HGB Conc 32.4 g/dl (32-36); Mean Corpuscular Hemoglobin 30.6 pg (26-34); Mean Corpuscular Volume 94.4 fl (80-100); Mean Platelet Volume 9.7 fl (7.4-10.4); Monocytes Absolute Auto 0.7 K/mm3 (0.1-0.6); Monocytes Percent Auto 13.2 % (2.6-8.5); Neutrophils Absolute Auto 3.6 K/mm3 (1.3-6.7); Neutrophils Percent Auto 66.1 % (45.5-73.1); Platelet Count Result 255 k/mm3 (150-375); Red Blood Count 4.32 M/mm3 (4.2-5.4); Red Cell Distribution Width 14.7 % (11.5-14.5); White Blood Count 5.5 K/mm3 (4.5-10.0)
[2023-07-30 12:13] LABS: Alanine Aminotransferase 17 U/L (6-35); Albumin Level 4.4 g/dL (3.5-5.1); Alkaline Phosphatase 77 U/L (38-126); Anion Gap 7 mmol/L (8-16); Aspartate Amino Transferase 29 U/L (14-36); Bilirubin,Total 0.5 mg/dL (0.2-1.3); Blood Urea Nitrogen 13 mg/dL (7-17); Calcium 10.2 mg/dL (8.4-10.2); Carbon Dioxide 28 mmol/L (22-30); Chloride 99 mmol/L (98-107); Estimated Glomerular Filt Rate > 60; Glucose 82 mg/dL (65-110); Potassium 4.3 mmol/L (3.4-5.0); Sodium 134 mmol/L (137-145)
[2023-08-02 06:10] LABS: CA 15-3 12 U/mL (<32)
== END 2023-07-30 11:19 | disposition home or self-care (01) ==
PROVIDERS: PCP Family Medicine; Visit Provider Internal Medicine Hematology & Oncology
DX: C50.212 Malignant neoplasm of upper-inner quadrant of left female breast (principal); Z17.0 Estrogen receptor positive status [ER+]
CPT/HCPCS: 36415; 80053; 85025; 86300

== ENCOUNTER 2023-11-25 11:28 | Outpatient (CLI) | payer MEDICARE, SELFPAY ==
[2023-11-25 11:48] LABS: Basophils Absolute Auto 0.1 K/mm3 (0.0-0.1); Basophils Percent Auto 0.9 % (0.2-1.2); Eosinophils Absolute Auto 0.1 K/mm3 (0-0.3); Eosinophils Percent Auto 1.7 % (0-4.4); Hematocrit 43.4 % (37.0-47.0); Hemoglobin 13.4 g/dL (12.0-15.0); Immature Granulocyte Absolute 0.02 K/mm3 (0.00-0.031); Immature Granulocyte Percent A 0.4 % (0-0.5); Immature Platelet Fraction Pct 8.2 % (0.9-11.2); Lymphocytes Absolute Auto 1.22 K/mm3 (0.9-3.2); Lymphocytes Percent Auto 22.9 % (18.3-44.2); Mean Corpuscular HGB Conc 30.9 g/dl (32-36); Mean Corpuscular Hemoglobin 30.2 pg (26-34); Monocytes Absolute Auto 0.8 K/mm3 (0.1-0.6); Monocytes Percent Auto 14.3 % (2.6-8.5); Neutrophils Absolute Auto 3.2 K/mm3 (1.3-6.7); Neutrophils Percent Auto 59.8 % (45.5-73.1); Platelet Count Result 150 k/mm3 (150-375); Red Blood Count 4.43 M/mm3 (4.2-5.4); Red Cell Distribution Width 14.1 % (11.5-14.5); White Blood Count 5.3 K/mm3 (4.5-10.0)
[2023-11-25 12:23] LABS: Alanine Aminotransferase 15 U/L (6-35); Albumin Level 4.5 g/dL (3.5-5.1); Alkaline Phosphatase 91 U/L (38-126); Anion Gap 6 mmol/L (8-16); Aspartate Amino Transferase 30 U/L (14-36); Bilirubin,Total 0.4 mg/dL (0.2-1.3); Blood Urea Nitrogen 14 mg/dL (7-17); Calcium 10.6 mg/dL (8.4-10.2); Carbon Dioxide 28 mmol/L (22-30); Chloride 100 mmol/L (98-107); Estimated Glomerular Filt Rate > 60; Glucose 94 mg/dL (65-110); Potassium 4.1 mmol/L (3.4-5.0); Sodium 134 mmol/L (137-145)
[2023-11-29 07:29] LABS: CA 15-3 12 U/mL (<32)
== END 2023-11-25 11:29 | disposition home or self-care (01) ==
LOC: ANHLAB 11:30
PROVIDERS: PCP Family Medicine; Visit Provider Internal Medicine Hematology & Oncology
DX: C50.212 Malignant neoplasm of upper-inner quadrant of left female breast (principal); Z17.0 Estrogen receptor positive status [ER+]
CPT/HCPCS: 36415; 80053; 85025; 85055; 86300

== ENCOUNTER 2023-12-29 10:03 | Outpatient (CLI) | payer MEDICARE, SELFPAY ==
--- NOTE | ~2023-12-29 | MM_ITS ---
EXAMINATION: MM screening sherri BI w constantino HISTORY: Screening mammogram TECHNIQUE: Craniocaudal and mediolateral oblique 3-D tomosynthesis images were obtained and synthetic 2-D images were generated. CAD analysis was submitted and interpreted. COMPARISON: 12/16/2022 bilateral screening mammogram 07/02/2022 left ultrasound guided biopsy, with pathology report of invasive carcinoma 06/13/2022 bilateral diagnostic mammography and bilateral Limited breast ultrasound 11/2021 bilateral screening mammogram BREAST PARENCHYMAL COMPOSITION: There are scattered areas of fibroglandular density. FINDINGS: Status post left partial mastectomy with volume loss of the left lung. There is no evidence of suspicious mass, calcification, or architectural distortion to suggest malignancy in either breas t. There has been no suspicious interval change. IMPRESSION: 1. Status post left partial mastectomy for breast cancer. No mammographic evidence of malignancy. 2. Recommend routine screening mammography in one year. BI-RADS Category 2: Benign finding(s). Reviewed, dictated and finalized at location A. IMPRESSION: 1. Status post left partial mastectomy for breast cancer. No mammographic evide nce of malignancy. 2. Recommend routine screening mammography in one year. BI-RADS Category 2: Benign finding(s).
== END 2023-12-29 10:04 | disposition home or self-care (01) ==
LOC: ANHIMG 10:06
PROVIDERS: PCP Family Medicine; Visit Provider Internal Medicine Hematology & Oncology
DX: Z12.31 Encounter for screening mammogram for malignant neoplasm of breast (principal)
CPT/HCPCS: 77063; 77067

== ENCOUNTER 2024-05-13 10:56 | Outpatient (CLI) | payer MEDICARE, SELFPAY ==
[2024-05-13 11:15] LABS: Basophils Absolute Auto 0.1 K/mm3 (0.0-0.1); Basophils Percent Auto 1.3 % (0.2-1.2); Eosinophils Absolute Auto 0.3 K/mm3 (0-0.3); Eosinophils Percent Auto 7.3 % (0-4.4); Hematocrit 40.9 % (37.0-47.0); Hemoglobin 13.2 g/dL (12.0-15.0); Immature Granulocyte Absolute 0.01 K/mm3 (0.00-0.031); Immature Granulocyte Percent A 0.3 % (0-0.5); Lymphocytes Absolute Auto 0.89 K/mm3 (0.9-3.2); Lymphocytes Percent Auto 22.5 % (18.3-44.2); Mean Corpuscular HGB Conc 32.3 g/dl (32-36); Mean Corpuscular Hemoglobin 30.3 pg (26-34); Mean Platelet Volume 10.3 fl (7.4-10.4); Monocytes Absolute Auto 0.6 K/mm3 (0.1-0.6); Monocytes Percent Auto 14.4 % (2.6-8.5); Neutrophils Absolute Auto 2.1 K/mm3 (1.3-6.7); Neutrophils Percent Auto 54.2 % (45.5-73.1); Platelet Count Result 247 k/mm3 (150-375); Red Blood Count 4.35 M/mm3 (4.2-5.4)
[2024-05-13 13:04] LABS: Alanine Aminotransferase 14 U/L (6-35); Albumin Level 4.4 g/dL (3.5-5.1); Alkaline Phosphatase 83 U/L (38-126); Anion Gap 9 mmol/L (4-12); Aspartate Amino Transferase 27 U/L (14-36); Bilirubin,Total 0.4 mg/dL (0.2-1.3); Blood Urea Nitrogen 13 mg/dL (7-17); Calcium 9.4 mg/dL (8.4-10.2); Carbon Dioxide 30 mmol/L (22-30); Chloride 98 mmol/L (98-107); Estimated Glomerular Filt Rate > 60; Glucose 82 mg/dL (65-110); Potassium 4.1 mmol/L (3.4-5.0); Sodium 137 mmol/L (137-145)
[2024-05-14 12:23] LABS: CA 15-3 10 U/mL (<32)
== END 2024-05-13 10:57 | disposition home or self-care (01) ==
PROVIDERS: PCP Family Medicine; Visit Provider Internal Medicine Hematology & Oncology
DX: C50.212 Malignant neoplasm of upper-inner quadrant of left female breast (principal); Z17.0 Estrogen receptor positive status [ER+]
CPT/HCPCS: 36415; 80053; 85025; 86300

== ENCOUNTER 2024-09-07 14:08 | Outpatient (CLI) | payer MEDICARE, SELFPAY ==
[2024-09-07 14:40] LABS: Basophils Percent Auto 0.7 % (0.2-1.2); Eosinophils Absolute Auto 0.1 K/mm3 (0-0.3); Eosinophils Percent Auto 1.4 % (0-4.4); Hematocrit 41.2 % (37.0-47.0); Hemoglobin 13.1 g/dL (12.0-15.0); Immature Granulocyte Absolute 0.02 K/mm3 (0.00-0.031); Immature Granulocyte Percent A 0.3 % (0-0.5); Lymphocytes Absolute Auto 1.17 K/mm3 (0.9-3.2); Lymphocytes Percent Auto 19.8 % (18.3-44.2); Mean Corpuscular HGB Conc 31.8 g/dl (32-36); Mean Corpuscular Hemoglobin 30.4 pg (26-34); Mean Corpuscular Volume 95.6 fl (80-100); Mean Platelet Volume 10.3 fl (7.4-10.4); Monocytes Absolute Auto 0.7 K/mm3 (0.1-0.6); Monocytes Percent Auto 12.3 % (2.6-8.5); Neutrophils Absolute Auto 3.9 K/mm3 (1.3-6.7); Neutrophils Percent Auto 65.5 % (45.5-73.1); Platelet Count Result 261 k/mm3 (150-375); Red Blood Count 4.31 M/mm3 (4.2-5.4); White Blood Count 5.9 K/mm3 (4.5-10.0)
[2024-09-07 17:16] LABS: Anion Gap 10 mmol/L (4-12); Blood Urea Nitrogen 14 mg/dL (7-17); Calcium 9.4 mg/dL (8.4-10.2); Carbon Dioxide 19 mmol/L (22-30); Chloride 106 mmol/L (98-107); Estimated Glomerular Filt Rate > 60; Glucose 85 mg/dL (65-110); Potassium 4.3 mmol/L (3.4-5.0); Sodium 135 mmol/L (137-145)
[2024-09-07 17:17] LABS: Alanine Aminotransferase 14 U/L (6-35); Albumin Level 4.4 g/dL (3.5-5.1); Alkaline Phosphatase 84 U/L (38-126); Aspartate Amino Transferase 45 U/L (14-36); Bilirubin,Total 0.6 mg/dL (0.2-1.3); Total Protein 7.5 g/dL (6.3-8.2)
[2024-09-08 12:09] LABS: CA 15-3 8 U/mL (<32)
== END 2024-09-07 14:09 | disposition home or self-care (01) ==
LOC: ANHLAB 14:10
PROVIDERS: PCP Family Medicine; Visit Provider Internal Medicine Hematology & Oncology
DX: C50.212 Malignant neoplasm of upper-inner quadrant of left female breast (principal); Z17.0 Estrogen receptor positive status [ER+]
CPT/HCPCS: 36415; 80053; 85025; 86300

== ENCOUNTER 2024-12-30 08:47 | Outpatient (CLI) | payer MEDICARE, SELFPAY ==
--- NOTE | ~2024-12-30 | MM_ITS ---
EXAMINATION: MM screening sherri BI w constantino HISTORY: Screening TECHNIQUE: Craniocaudal and mediolateral oblique 3-D tomosynthesis images were obtained and synthetic 2-D images were generated. CAD analysis was submitted and interpreted. Limited evaluation given the technique of the left MLO view, possibly secondary to patient tolerance. COMPARISON: 12/29/2023 and dating back to 11/07/2020. BREAST PARENCHYMAL COMPOSITION: There are scattered areas of fibroglandular density. FINDINGS: Punctate calcifications detected bilaterally, vascular in origin and benign in appearance. Punctate and bulky calcifications are detected bilaterally, stable and benign in appearance. Stable parenchymal pattern without suspicious microcalcifications, architectural distortion, discrete masses or significant asymmetry. IMPRESSION: 1. No mammographic evidence of malignancy. 2. Recommend routine screening mammography in one year. BI-RADS Category 2: Benign finding(s). Reviewed, dictated and finalized at location A.
--- OUTSIDE RECORDS SUMMARY | 2024-12-30 09:12 | XMS_ITS | Clinical Summary ---
Author Organization [facility] Healthcare Address [address] [place] [address] Care Team Providers Care .Net Architect Name Role Phone Julio Taylor MD Unavailable [phone] Santos Em MD Primary Care Provider Allergies No known active allergies Medications multivitamin tabletIndicatio ns:Vitamin Deficiency Prevention Take 1 tablet by mouth daily. Active calcium carbonate (OS-FARIDA) 1,250 MG (500 mg of elemental calcium) tablet Take 1 tablet by mouth daily. Active glucosamine-cho ndroitin 500-400 mg capsule Take 1 capsule by mouth daily. Active Active Problems Problem Noted Date Diagnosed Date H/O acute myocardial infarction 04/16/2018 Overview (04/16/2018): per patient foound likely old NE on EKG when went in for knee surgery. Hypomagnesemia 03/07/2018 Acute pain of left knee 03/07/2018 Moderate protein-calorie malnutrition 03/07/2018 Atrial fibrillation with RVR Colitis Dehydration Resolved Problems Problem Noted Date Diagnosed Date Resolved Date Incisional hernia with obstr uction but no gangrene 03/04/2018 03/30/2018 Small bowel obstruction 03/07 Surgical History Surgery Date Site/Laterality Comments COLOSTOMY REPLACEMENT TOTAL KNEE HYSTERECTOMY HERNIA REPAIR Medical History Medical History Date Comments History of malignant neoplas m of other parts of uterus Adenocarcinoma Of The Uterus - (Added by TW Conv) Malignant neoplasm of rectum (HCC) Rectal adenocarcinoma - (Added by TW Conv) NE (myocardial infarction) (HCC) per patient foound likely old NE on EKG when went in for knee surgery. 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 Gender Identity Not on file Sexual Orientation Not on file Obstetrics History Last Filed Vital Signs Vital Sign Reading Time Taken Comments Blood Pressure 127/71 05/02/2018 12:05 PM CDT Pulse 68 05/02/2018 12:05 PM CDT Temperature 36.7 C (98 F) 05/02/2018 12:05 PM CDT Respiratory Rate 17 05/02/2018 12:05 PM CDT Oxygen Saturation 99% 05/02/2018 12:05 PM CDT Inhaled Oxygen Concentration - - Weight 53 kg (116 lb 14.4 oz) 04/29/2018 6:37 PM CDT Height 156.2 cm (5' 1.5 ) 04/29/2018 6:37 PM CDT Body Mass Index 21.73 04/29/2018 6:37 PM CDT Plan of Treatment Not on file Medical Devices Implanted Type Area Valve Maker Device Identifier Shelf Expiration Date Model / Serial / Lot Matrix Tissue Strattice Porcine Dermis L20 Cm X W10 Cm Reconstructive Sterile - [id number] Implanted:Qty: 1 on 03/03/2018 by Ananth Gomez MD at [facility] Other - see comments N/A: Abdomen [employer] 11/05/2018 [id number] / / [id number] Description:Strattice Recons tructive Tissue Matrix - Abdominal Wall Insurance MEDICARE COMMERCIAL GENERIC MEDICARE [facility] MEDICARE SUPPLEMENT INSURANCE Advance Directives For more information, please contact: [phone] * Full Code (Latest Code Status on File) Date Activated Date Inactivated Comments 04/29/2018 6:43 PM 05/02/2018 4:52 PM * Full Code Date Activated Date Inactivated Comments 03/04/2018 4:20 AM 03/13/2018 6:03 PM Care Teams .Net Architect Relationship Specialty Start Date End Date Santos Em MD [address] [facility] [address] [place] [id number] PCP - General Family Medicine 07/17/19 Julio Taylor MD Consulting Physician Cardiology 03/13/18
--- OUTSIDE RECORDS SUMMARY | 2024-12-30 09:12 | XMS_ITS | Continuity of Care Document ---
Author Organization [facility] Address [address] [place] [address] Phone Care Team Providers Care Recruiting Scheduler Name Role Phone Palacios OD, Usman Unavailable Unavailable Advance Directives Directive Yes / No Effective Date File Name No Information Encounters Encounter Description Practice Location Reason(s) For Visit Diagnoses Date Provider Providers Copied on Encounter [facility], [address], [place], [place], [id number], [place] tel:[phone] [facility] No Information Apr-0 8-200 3 Palacios OD Usman. [address] , [address], [place], [address], [place]. tel:[phone] Family History Family Member Type Diagnosis Age At Onset No Information Payers Payer name Insurance type Covered green party ID Authoriza tion(s) [employer] SOI CI [id number] Social History Type Description Quantity Date Captured Comments Sex Female Smoking Status No Information Chief Complaint And Reason For Visit No Information Reason For Referral Reason For Referral No Information History Of Present Illness Encounter Date Complaint History Of Prese nt Illness No Information Functional Status Date Functional Assessmen t No Information Instructions Date Instruction Additional Infor mation No Information Assessments Type Assessment Date No Information Patient Care Teams Name Effective Dates (start - stop) Status Members No Information
--- OUTSIDE RECORDS SUMMARY | 2024-12-30 09:12 | XMS_ITS | Clinical Summary ---
Author Organization [facility] Address [address] [place] [address] Phone Care Team Providers Care Aircraft Inspector Name Role Phone Santos Em MD Primary Care Provider [phone] Allergies No known active allergies Medications multivitamin (DAILY-JUSTINE) tablet Take 1 Tablet by mouth daily. Active calcium as carbonate (CALTRATE) 1,500 mg (600 mg elemental) Tablet Take 600 mg by mouth daily. Active CHOLECALCIFEROL, VITAMIN D3, ORAL Take by mouth. Active calcium as carbonate (OS-FARIDA) 1,250 mg (500 mg elemental) tablet Take 1 Tablet by mouth daily. Active cetirizine (ZyrTEC) 10 mg tablet Take 10 mg by mouth daily. Active anastrozole (ARIMIDEX) 1 mg tablet TAKE 1 TABLET BY MOUTH DAILY FOR 30 DOSES 90 Tablet 6 01/05/2024 Active Active Problems No known active problems Encounters Date Type Department Care Team Description 11/24/2024 External Device Data ST[facility] ABSTRACTION Provider, Abstract 11/03/2024 External Device Data [facility] ABSTRACTION Provider, Abstract 10/28/2024 External Device Data [facility] ABSTRACTION Provider, Abstract from Last 3 Months Family History Medical History Relation Name Comments Tongue Cancer Brother 1 Cancer Brother 2 No Known Problems Brother 3 No Known Problems Brother 4 No Known Problems Brother 5 No Known Problems Daughter 1 No Known Problems Daughter 2 Thyroid Cancer Daughter 3 Brain Cancer Father Lung Cancer Mother No Known Problems Son Relation Name Status Comments Brother 1 Brother 2 Brother 3 Brother 4 Brother 5 Alive Daughter 1 Alive Daughter 2 Alive Daughter 3 Alive Father Mother Son Social History Tobacco Use Types Packs/Day Years Used Date Smoking Tobacco: Never Smokeless Tobacco: Never Tobacco Cessation:Counseling Given: Not Answered Alcohol Use Standard Drinks/Week Comments Yes 0 (1 standard drink = 0.6 oz pur e alcohol) rare Comments No Sex and Gender Information Value Date Recorded Sex Assigned at Not on file Legal Sex Female 1:16 PM MANUFACTURING DIRECTOR Gender Identity Not on file Sexual Orientation Not on file Last Filed Vital Signs Vital Sign Reading Time Taken Comments Blood Pressure 130/72 09/16/2024 2:41 PM MANUFACTURING DIRECTOR Pulse 65 09/16/2024 2:41 PM MANUFACTURING DIRECTOR Temperature 36.3 C (97.3 F) 09/16/2024 2:41 PM MANUFACTURING DIRECTOR Respiratory Rate 15 09/16/2024 2:41 PM MANUFACTURING DIRECTOR Oxygen Saturation 98% 09/16/2024 2:41 PM MANUFACTURING DIRECTOR Inhaled Oxygen Concentration - - Weight 58.7 kg (129 lb 6.4 oz) 09/16/2024 2:41 P M MANUFACTURING DIRECTOR Height 154.9 cm (5' 1 ) 09/12/2022 10:38 AM MANUFACTURING DIRECTOR Body Mass Index 24.45 09/12/2022 10:38 AM MANUFACTURING DIRECTOR Plan of Treatment Upcoming Encounters Date Type Department Care Team (Late st Contact Info) Description 01/17/2025 2:15 PM CDT Office Visit [facility] Oncology and Hematology - [place] [address] [facility] [address] [place] [address] Ronaldo Neal MD [address] [facility] [address] [place] [address] Health Maintenance Due Date Last Done Comments DTAP/TDAP/TD VACCINES (1 - Tdap) 12/24/1959 PNEUMOCOCCAL VACCINE 50+ YEARS (1 of 1 - PCV) 12/23/18 91 ZOSTER VACCINE (1 of 2) 1990 RSV VACCINE (60+ or ) (1 - 1-dose 75+ series) 12/24/2015 INFLUENZA VACCINE (#1) 2024 OSTEOPOROSIS SCREENING Completed 03/31/2023 Medical Devices Implanted Type Area Emergency Care Tech Device Identifier Shelf Expiration Date Model / Serial / Lot Hemostatic Surgiflo 8ml W/Thrombin 2994 - [id number] Implanted:Qty: 1 on 10/12/2018 by Antonio Moreno MD at [facility] [employer] [id number] 02/03/2020 2994 / / [id number] Knee,Right Insurance [facility] Medicare Part D MEDICARE PART A AND B CIGNA MCR SUPP [employer]ON [employer] [facility] Advance Directives For more information, please contact: [phone] * Full Code (Latest Code Status on File) Date Activated Date Inactivated Comments 10/12/2018 6:41 AM 10/12/2018 3:11 PM * Full Code Date Activated Date Inactivated Comments 10/12/2018 5:49 AM 10/12/2018 6:41 AM Care Teams Aircraft Inspector Relationship Specialty Start Date End Date Santos Em MD [address] [facility] [address] [facility] [address] [place] [address] PCP - General Family Practice 08/12/23
--- OUTSIDE RECORDS SUMMARY | 2024-12-30 09:12 | XMS_ITS | Referral Summary ---
Author Organization [facility] Healthcare Address [address] [place] [address] Care Team Providers Care Paramedic Instructor Name Role Phone Julio Taylor MD Unavailable [phone] Santos Em MD Primary Care Provider Allergies [...] Overview (04/16/2018): per patient foound likely old PR on EKG when went in for knee surgery. Hypomagnesemia 03/07/2018 Acute pain of left knee 03/07/2018 Moderate protein-calorie malnutrition 03/07/2018 Atrial fibrillation with RVR Colitis Dehydration Resolved Problems Problem Noted Date Diagnosed Date Resolved Date Incisional hernia with obstr uction but no gangrene 03/04/2018 03/30/2018 Small bowel obstruction 03/07 Social History Tobacco Use Types Packs/Day Years Used Date Smoking Tobacco: Never Smokeless Tobacco: Never Alcohol Use Standard Drinks/Week Comments Yes 0 (1 standard drink = 0.6 oz pur e alcohol) social Comments Unknown Sex and Gender Information Value Date Recorded Sex Assigned at Not on file Legal Sex Female 2:18 AM 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 Gender Identity Not on file Sexual Orientation [...] on file Medical Devices Implanted Type Area Computer Tech Device Identifier Shelf Expiration Date Model / Serial / Lot Matrix Tissue Strattice Porcine Dermis L20 Cm X W10 Cm Reconstructive Sterile - [id number] Implanted:Qty: 1 on 03/03/2018 by Ananth Gomez MD at [facility] Other - see comments N/A: Abdomen [employer] 11/05/2018 [id number] / / [id number] Description:Strattice Recons tructive Tissue Matrix - Abdominal Wall Insurance MEDICARE COMMERCIAL GENERIC MEDICARE [facility] MEDICARE SUPPLEMENT INSURANCE Advance Directives For more information, please contact: [phone] * Full Code (Latest Code Status on File) Date Activated Date Inactivated Comments 04/29/2018 6:43 PM 05/02/2018 4:52 PM * Full Code Date Activated Date Inactivated Comments 03/04/2018 4:20 AM 03/13/2018 6:03 PM Care Teams Paramedic Instructor Relationship Specialty Start Date End Date Santos Em MD [address] [place] [phone] PCP - General Family Medicine 07/17/19 Julio Taylor MD Consulting Physician Cardiology 03/13/18
--- OUTSIDE RECORDS SUMMARY | 2024-12-30 09:12 | XMS_ITS | Clinical Summary ---
Author Organization [facility] Address [address] [place] [address] Care Team Providers Care Senior Systems Software Engineer Name Role Phone Vance Moreno MD Unavailable [phone] Santos Em MD Primary Care Provider [phone] Source Comments [facility],non-owned Affiliates and Associated Physician Practices is amultiple site organization consisting of ambulatory clinics and hospital sitesin [place], [place], [place] and [place]. This disclosure is being madepursuant to the Care Everywhere program and may not contain all information available regarding this patient. Last updated 18.[facility] Allergies No known active allergies Medications * Be aware that medications may not be up to date on this document. Alwaysverify current medications with the patient. Medication Sig Dispensed Refills Start Date End Date Status Calcium Carbonate-Vitamin D (CALCIUM + D PO) Take 600 mg by mouth once daily 500 units of d3 Active Glucosamine-Chondroit -Vit C-Mn (GLUCOSAMINE CHONDR 1500 COMPLX PO) Take 1 Tab by mouth 2 times daily Active multivitamin daily (THERAGRAN) tablet Take 1 Tab by mouth daily with food Active ondansetron, disintegrating, (ZOFRAN ODT) 4 MG tablet Take 1 tablet by mouth every 6 hours as needed for Nausea/Vomiting Allow tablet to dissolve on the tongue 30 tablet 11/15/2019 Active HYDROcodone-acetamino phen (NORCO) 10-325 MG tabletIndications:Aft ercare following left knee joint replacement surgery Take 0.5-1 tablets by mouth every 6 hours as needed 28 tablet 11/30/2019 Active Active Problems Problem Noted Date Diagnosed Date History of colon cancer 02/03/2019 History of uterine cancer 02/03/2019 Major depression, chronic 02/03/2019 Status post colostomy 02/03/2019 Primary osteoarthritis of left knee 11/24/2018 Status post right knee replacement 11/24/2018 Atrial fibrillation with RVR 11/24/2018 H/O acute myocardial infarction 04/16/2018 Overview (11/24/2018): Overview: per patient foound likely old [place] on EKG when went in for knee surgery. Social History Tobacco Use Types Packs/Day Years Used Date Smoking Tobacco: Never Smokeless Tobacco: Never Alcohol Use Standard Drinks/Week Comments Yes 0 (1 standard drink = 0.6 oz pur e alcohol) occ Sex and Gender Information Value Date Recorded Sex Assigned at Not on file Gender Identity Not on file Sexual Orientation Not on file Last Filed Vital Signs Vital Sign Reading Time Taken Comments Blood Pressure 106/55 11/12/2019 7:59 AM HEEL SEAT POUNDER Pulse 83 11/12/2019 7:59 AM HEEL SEAT POUNDER Temperature 36.3 C (97.3 F) 11/12/2019 7:59 AM HEEL SEAT POUNDER Respiratory Rate 18 11/12/2019 7:59 AM HEEL SEAT POUNDER Oxygen Saturation 93% 11/12/2019 7:59 AM HEEL SEAT POUNDER Inhaled Oxygen Concentration - - Weight 58.9 kg (129 lb 12.8 oz) 020 10:03 AM HEEL SEAT POUNDER Height 157.5 cm (5' 2 ) 11/10/2019 10:0 3 AM HEEL SEAT POUNDER Body Mass Index 23.74 11/10/2019 10:03 AM HEEL SEAT POUNDER Plan of Treatment Health Maintenance Due Date Last Done Comments BONE DENSITY TESTING 1940 MEDICARE AWV 12 MONTHS 1940 DTAP/TDAP/TD VACCINES (1 - Tdap) 12/24/1959 PNEUMOCOCCAL VACCINE 50+ (1 of 1 - PCV) 1990 ZOSTER VACCINE (1 of 2) 1990 Respiratory Syncytial Virus (RSV) Vaccine Pt: or over 60 yrs (1 - 1-dose 75+ series) 12/24/2015 COVID-19 VACCINE ( - 2023-2 5 season) 2024 INFLUENZA VACCINE (#1) 2024 DEPRESSION SCREENING 10/06/2024 HEPATITIS B VACCINE Aged Out No longe r eligible based on patient's age to complete this topic HIB VACCINE Aged Out No longer eligi ble based on patient's age to complete this topic HPV VACCINE Aged Out No longer eligi ble based on patient's age to complete this topic MENINGOCOCCAL (Group B) VACC INE SHARED DECISION-MAKING Aged Out No longer eligibl e based on patient's age to complete this topic MENINGOCOCCAL GROUPS A/C/Y/W VACCINE Aged Out No longer eligible b ased on patient's age to complete this topic Medical Devices Implanted Type Area Dish Network Installer Device Identifier Shelf Expiration Date Model / Serial / Lot Damien Bone [place] Hv Implanted:Qty: 1 on 09/13/2015 by Vance Moreno MD at [facility] Right: Knee [employer] 04/04/2017 [id number] / / [id number] Ty Tibial I Beam Fix Bar 67mm Implanted:Qty: 1 on 09/13/2015 by Vance Moreno MD at [facility] Right: Knee Bi[employer] Inc 05/05/2025 [id number] / / [id number] Butn Pat Arcom Wire Polyeth Xsm 28 X 8 Implanted:Qty: 1 on 09/13/2015 by Vance Moreno MD at [facility] Right: Knee [employer] Inc 07/05/2020 [id number] / / [id number] Kn Ins Vangurd Fem Cocr R-Intlok 60mm Implanted:Qty: 1 on 09/13/2015 by Vance Moreno MD at [facility] Right: Knee [employer] Inc 03/29/2025 [id number] / / [id number] Vangrd Ant Stblzd Brg 10mm X 67mm Implanted:Qty: 1 on 09/13/2015 by Vance Moreno MD at [facility] Right: Knee [employer] Inc 03/16/2020 [id number] / / [id number] [id number] Vngrd Arcm Kn Ant Stab Implanted:Qty: 1 on 11/10/2019 by Vance Moreno MD at [facility] Left: Knee Svetlana [employer] 09/21/2024 [id number] / / [id number] Cmnt Bone Djo Srg Cblt 40gm Hvisc Strl Implanted:Qty: 1 on 11/10/2019 by Vance Moreno MD at [facility] Left: Knee [employer] 05/17/2021 [id number] / / [id number] Cmpnt Fem Kn Lt Cr Cmnt Prm Vngrd Intlk Implanted:Qty: 1 on 11/10/2019 by Vance Moreno MD at [facility] Left: Knee Svetlana [employer] 12/01/2028 [id number] / / [id number] Tray Tib 67mm Kn Cocr I Beam Implanted:Qty: 1 on 11/10/2019 by Vance Moreno MD at [facility] Left: Knee Svetlana [employer] 06/20/2029 [id number] / / [id number] Cmpnt Ptlr 28mm 1 Pg Wire Ascnt Arcm Kn Implanted:Qty: 1 on 11/10/2019 by Vance Moreno MD at [facility] Left: Knee Svetlana [employer] 10/19/2024 [id number] / / [id number] Advance Directives Documents on File Type Date Recorded Patient Electronic Imaging System Operator Expl anation Adv Directive/Living Will/POA 09/21/2015 5:25 PM * Full Code (Latest Code Status on File) Date Activated Date Inactivated Comments 11/10/2019 3:58 PM 11/12/2019 3:18 PM * Full Code Date Activated Date Inactivated Comments 09/13/2015 4:02 PM 09/20/2015 5:02 PM Care Teams Senior Systems Software Engineer Relationship Specialty Start Date End Date Santos Em MD [address] [place] [address] PCP - General 07/09/22 [place] [address] [place] [address] Orthopedic Surgery 01/03/15
--- OUTSIDE RECORDS SUMMARY | 2024-12-30 09:12 | XMS_ITS | Continuity of Care Document ---
Author Organization [facility] Address [address] [place] [id number] Phone Care Team Providers Care Solar Sales Manager Name Role Phone Rogelio Escoto Unavailable Unavailable Procedures Procedure Date Initial hospital care, [facility] Asp/inject major joint or bursa w/o US g uidance Advance Directives Directive Yes / No Effective Date File Name No Information Encounters Encounter Description Practice Location Reason(s) For Visit Diagnoses Date Provider Providers Copied on Encounter Initial hospital care, [facility], [address], [address] [place] [address], [place] tel:[phone] [facility] No Information 8 Tigist Wayne er. [address] [facility], [facility] [address], [place], [place], [address] [place] [address] , . tel:[phone] Referring Provider: Rogelio Hare, [address] [place] [address], [place], [address]. tel:[phone] Family History Family Member Type Diagnosis Age At Onset No Information Payers Payer name Insurance type Covered constitution party ID Authoriza tion(s) Medicare [place] WPS Part B [place] [id number] Cigna Medicare Supplement Insurance CI [id number] Social History Type Description Quantity Date Captured [...]
--- OUTSIDE RECORDS SUMMARY | 2024-12-30 09:12 | XMS_ITS | Continuity of Care Document ---
[facility] Organization [facility] Address [address] [place] [address] Phone Care Team Providers Care Life Management Teacher Name Role Phone Malik Beck MD Unavailable Unavailable Advance Directives Directive Yes / No Effective Date File Name No Information Encounters Encounter Description Practice Location Reason(s) For Visit Diagnoses Date Provider Providers Copied on Encounter [facility], [address], [place], [place], [address], tel:[phone] [facility] No Information 5 Kiran Gan. [address] [place] [address], [facility], . tel:[phone] Referring Provider: Honorio Gordon, [address] [place] [address], [address]. tel:[phone] Family History Family Member Type Diagnosis Age At Onset No Information Payers Payer name Insurance type Covered alliance party ID Authoriza tion(s) MEDICARE MB [id number] LOYAL INDONESIAN MDCR SUPPLEMENT CI [id number] Social History Type Description Quantity Date Captured [...]
== END 2024-12-30 08:48 | disposition home or self-care (01) ==
PROVIDERS: PCP Family Medicine; Visit Provider Internal Medicine Hematology & Oncology
DX: Z12.31 Encounter for screening mammogram for malignant neoplasm of breast (principal)
CPT/HCPCS: 77063; 77067

== ENCOUNTER 2024-12-30 09:26 | Outpatient (CLI) | payer MEDICARE, SELFPAY ==
[2024-12-30 09:49] LABS: Basophils Percent Auto 0.7 % (0.2-1.2); Eosinophils Absolute Auto 0.1 K/mm3 (0-0.3); Eosinophils Percent Auto 3.2 % (0-4.4); Hematocrit 39.1 % (37.0-47.0); Hemoglobin 12.8 g/dL (12.0-15.0); Immature Granulocyte Absolute 0.02 K/mm3 (0.00-0.031); Immature Granulocyte Percent A 0.5 % (0-0.5); Lymphocytes Absolute Auto 1.01 K/mm3 (0.9-3.2); Lymphocytes Percent Auto 25.1 % (18.3-44.2); Mean Corpuscular HGB Conc 32.7 g/dl (32-36); Mean Corpuscular Hemoglobin 30.5 pg (26-34); Mean Corpuscular Volume 93.1 fl (80-100); Mean Platelet Volume 9.7 fl (7.4-10.4); Monocytes Absolute Auto 0.6 K/mm3 (0.1-0.6); Monocytes Percent Auto 15.9 % (2.6-8.5); Neutrophils Absolute Auto 2.2 K/mm3 (1.3-6.7); Neutrophils Percent Auto 54.6 % (45.5-73.1); Platelet Count Result 252 k/mm3 (150-375); Red Cell Distribution Width 13.8 % (11.5-14.5)
--- OUTSIDE RECORDS SUMMARY | 2024-12-30 10:03 | XMS_ITS | Continuity of Care Document ---
Author Organization [facility] Address [address] [place] [id number] Phone Care Team Providers Care Waste Reduction Coordinator Name Role Phone Rogelio Escoto Unavailable Unavailable Procedures Procedure Date Initial hospital care, [facility] Asp/inject major joint or bursa w/o US g uidance Advance Directives Directive Yes / No Effective Date File Name No Information Encounters Encounter Description Practice Location Reason(s) For Visit Diagnoses Date Provider Providers Copied on Encounter Initial hospital care, [facility], [address], [address] [place] [address], [place] tel:[phone] [facility] No Information 8 Tigist [place] er. [address] [facility], [facility] [address], [place], [place], [address] [place] [address] , . tel:[phone] Referring Provider: Rogeilo Hare, [address] [address], [place], [address]. tel:[phone] Family History Family Member Type Diagnosis Age At Onset No Information Payers Payer name Insurance type Covered constitution party ID Authoriza tion(s) Medicare [place] WPS Part B MB [id number] Cigna Medicare Supplement Insurance CI [id number] Social History Type Description Quantity Date Captured [...]
--- OUTSIDE RECORDS SUMMARY | 2024-12-30 10:03 | XMS_ITS | Clinical Summary ---
Author Organization [facility] Address [address] [place] [address] Care Team Providers Care Pharmacist Per Diem Name Role Phone Vance Moreno MD Unavailable [phone] Santos Em MD Primary Care Provider [phone] Source Comments [facility],non-owned Affiliates and Associated Physician Practices is amultiple site organization consisting of ambulatory clinics and hospital sitesin [place], [place], [place] and [place]. This disclosure is being madepursuant to the Care Everywhere program and may not contain all information available regarding this patient. Last updated 18.[facility] Allergies No known active allergies Medications * [...] (11/24/2018): Overview: per patient foound likely old [place] on EKG when went in for knee [...] Comments Blood Pressure 106/55 11/12/2019 7:59 AM AIRCRAFT ENGINE DISMANTLER Pulse 83 11/12/2019 7:59 AM AIRCRAFT ENGINE DISMANTLER Temperature 36.3 C (97.3 F) 11/12/2019 7:59 AM AIRCRAFT ENGINE DISMANTLER Respiratory Rate 18 11/12/2019 7:59 AM AIRCRAFT ENGINE DISMANTLER Oxygen Saturation 93% 11/12/2019 7:59 AM AIRCRAFT ENGINE DISMANTLER Inhaled Oxygen Concentration - - Weight 58.9 kg (129 lb 12.8 oz) 020 10:03 AM AIRCRAFT ENGINE DISMANTLER Height 157.5 cm (5' 2 ) 11/10/2019 10:0 3 AM AIRCRAFT ENGINE DISMANTLER Body Mass Index 23.74 11/10/2019 10:03 AM AIRCRAFT ENGINE DISMANTLER Plan of Treatment Health Maintenance Due Date [...] this topic Medical Devices Implanted Type Area Auto Wrecker Device Identifier Shelf Expiration Date Model / Serial / Lot Damien Bone [place] Hv Implanted:Qty: 1 on 09/13/2015 by Vance Moreno MD at [facility] Right: Knee [employer] 04/04/2017 [id number] / / [id number] Ty Tibial I Beam Fix Bar 67mm Implanted:Qty: 1 on 09/13/2015 by Vance Moreno MD at [facility] Right: Knee Bi[employer] Inc 05/05/2025 [id number] / / [id number] Butn Pat Arcom Wire Polyeth Xsm 28 X 8 Implanted:Qty: 1 on 09/13/2015 by Vance Moreno MD at [facility] Right: Knee [employer] Inc 07/05/2020 [id number] / / [id number] Kn Ins Vangurd Fem Cocr R-Intlok 60mm Implanted:Qty: 1 on 09/13/2015 by Vance Moreno MD at [facility] Right: Knee [employer] Inc 03/29/2025 [id number] / / [id number] Vangrd Ant Stblzd Brg 10mm X 67mm Implanted:Qty: 1 on 09/13/2015 by Vance Moreno MD at [facility] Right: Knee [employer] Inc 03/16/2020 [id number] / / [id number] Brng [id number] Vngrd Arcm Kn Ant Stab Implanted:Qty: 1 on 11/10/2019 by Vance Moreno MD at [facility] Left: Knee Svetlana [employer] 09/21/2024 [id number] / / [id number] Cmnt Bone Djo Srg Cblt 40gm Hvisc Strl Implanted:Qty: 1 on 11/10/2019 by Vance Moreno MD at [facility] Left: Knee [employer] 05/17/2021 600-15-000 / / [id number] Cmpnt Fem Kn Lt Cr Cmnt Prm Vngrd Intlk Implanted:Qty: 1 on 11/10/2019 by Vance Moreno MD at [facility] Left: Knee Svetlana [employer] 12/01/2028 [id number] / / [id number] Tray Tib 67mm Kn Cocr I Beam Implanted:Qty: 1 on 11/10/2019 by Vance Moreno MD at [facility] Left: Knee Svetlana [employer] 06/20/2029 [id number] / / [id number] Cmpnt Ptlr 28mm 1 Pg Wire Ascnt Arcm Kn Implanted:Qty: 1 on 11/10/2019 by Vance Moreno MD at [facility] Left: Knee Svetlana [employer] 10/19/2024 [id number] / / [id number] Advance Directives Documents on File Type Date Recorded Patient Gas Distribution And Emergency Clerk Expl anation Adv Directive/Living Will/POA 09/21/2015 5:25 PM * Full Code (Latest Code Status on File) Date Activated Date Inactivated Comments 11/10/2019 3:58 PM 11/12/2019 3:18 PM * Full Code Date Activated Date Inactivated Comments 09/13/2015 4:02 PM 09/20/2015 5:02 PM Care Teams Pharmacist Per Diem Relationship Specialty Start Date End Date Santos Em MD [address] [place] [address] PCP - General 07/09/22 [place] [address] [place] [address] Orthopedic Surgery 01/03/15
--- OUTSIDE RECORDS SUMMARY | 2024-12-30 10:03 | XMS_ITS | Continuity of Care Document ---
Author Organization [facility] Address [address] [place] [address] Phone Care Team Providers Care Steamfitter Apprentice Name Role Phone Palacios OD, Usman Unavailable Unavailable Advance Directives Directive Yes / No Effective Date File Name No Information Encounters Encounter Description Practice Location Reason(s) For Visit Diagnoses Date Provider Providers Copied on Encounter [facility], [address], [place], [place], [id number], [place] tel:[phone] [facility] No Information Apr-0 8-200 3 Paalcios OD Usman. [address], [place], [address], [place]. tel:[phone] Family History Family Member Type Diagnosis Age At Onset No Information Payers Payer name Insurance type Covered democrat ID Authoriza tion(s) [employer] SOI CI [id number] Social History Type Description Quantity Date Captured [...]
--- OUTSIDE RECORDS SUMMARY | 2024-12-30 10:04 | XMS_ITS | Clinical Summary ---
Author Organization [facility] Address [address] [place] [address] Care Team Providers Care Community Health Nurse Staff Name Role Phone Julio Taylor MD Unavailable [phone] Santos Em MD Primary Care Provider Allergies [...] Overview (04/16/2018): per patient foound likely old [place] on EKG when went in for knee [...] Rectal adenocarcinoma - (Added by TW Conv) [place] (myocardial infarction) (HCC) per patient foound likely old [place] on EKG when went in for knee [...] on file Legal Sex Female 2:18 AM HEALTH INFORMATION MANAGERS Gender Identity Not on file Sexual Orientation [...] on file Medical Devices Implanted Type Area Sheet Rock Sander Device Identifier Shelf Expiration Date Model / Serial / Lot Matrix Tissue Strattice Porcine Dermis L20 Cm X W10 Cm Reconstructive Sterile - [id number] Implanted:Qty: 1 on 03/03/2018 by Ananth Gomez MD at [facility] Other - see comments N/A: Abdomen Acelity Lp Inc 11/05/2018 [id number] / / [id number] Description:Strattice Recons tructive Tissue Matrix - Abdominal Wall Insurance MEDICARE COMMERCIAL GENERIC MEDICARE [facility] MEDICARE SUPPLEMENT INSURANCE Advance Directives For more information, please contact: [phone] * Full Code (Latest Code Status on File) Date Activated Date Inactivated Comments 04/29/2018 6:43 PM 05/02/2018 4:52 PM * Full Code Date Activated Date Inactivated Comments 03/04/2018 4:20 AM 03/13/2018 6:03 PM Care Teams Community Health Nurse Staff Relationship Specialty Start Date End Date Santos Em MD [address] [facility] [address] [place] [id number] PCP - General Family Medicine 07/17/19 Julio Taylor MD Consulting Physician Cardiology 03/13/18
--- OUTSIDE RECORDS SUMMARY | 2024-12-30 10:04 | XMS_ITS | Clinical Summary ---
Author Organization [facility] Address [address] [place] [address] Phone Care Team Providers Care Head Of History Name Role Phone Santos Em MD Primary Care Provider [phone] Allergies No known active allergies Medications multivitamin [...] on file Legal Sex Female 1:16 PM FILEMAKER DEVELOPER Gender Identity Not on file Sexual Orientation Not on file Last Filed Vital Signs Vital Sign Reading Time Taken Comments Blood Pressure 130/72 09/16/2024 2:41 PM FILEMAKER DEVELOPER Pulse 65 09/16/2024 2:41 PM FILEMAKER DEVELOPER Temperature 36.3 C (97.3 F) 09/16/2024 2:41 PM FILEMAKER DEVELOPER Respiratory Rate 15 09/16/2024 2:41 PM FILEMAKER DEVELOPER Oxygen Saturation 98% 09/16/2024 2:41 PM FILEMAKER DEVELOPER Inhaled Oxygen Concentration - - Weight 58.7 kg (129 lb 6.4 oz) 09/16/2024 2:41 P M FILEMAKER DEVELOPER Height 154.9 cm (5' 1 ) 09/12/2022 10:38 AM FILEMAKER DEVELOPER Body Mass Index 24.45 09/12/2022 10:38 AM FILEMAKER DEVELOPER Plan of Treatment Upcoming Encounters Date Type Department Care Team (Late st Contact Info) Description 01/17/2025 2:15 PM CDT Office Visit [facility] Oncology and Hematology - [place] [address] [facility] [address] [place] [address] Ronaldo Neal MD [address] [facility] [facility] [address] [place] [address] Health Maintenance Due Date Last Done Comments DTAP/TDAP/TD VACCINES (1 - Tdap) 12/24/1959 Traditional Medicare (ACO) Annual Wellness Visit 12/23 PNEUMOCOCCAL VACCINE 50+ YEARS (1 of 1 - PCV) 12/23/18 91 ZOSTER VACCINE (1 of 2) 1990 RSV VACCINE (60+ or ) (1 - 1-dose 75+ series) 12/24/2015 INFLUENZA VACCINE (#1) 2024 OSTEOPOROSIS SCREENING Completed 03/31/2023 Medical Devices Implanted Type Area Electrician Sound Device Identifier Shelf Expiration Date Model / Serial / Lot Hemostatic Surgiflo 8ml W/Thrombin 2994 - [id number] Implanted:Qty: 1 on 10/12/2018 by Antonio Moreno MD at [facility] [employer] [id number] 02/03/2020 [id number] / / [id number] Knee,Right Insurance MEDICARE PART A AND B [id number] [id number] RX [facility] Medicare Part D MEDICARE PART A AND B [facility] SUPP Advance Directives For more information, please contact: [phone] * Full Code (Latest Code Status on File) Date Activated Date Inactivated Comments 10/12/2018 6:41 AM 10/12/2018 3:11 PM * Full Code Date Activated Date Inactivated Comments 10/12/2018 5:49 AM 10/12/2018 6:41 AM Care Teams Head Of History Relationship Specialty Start Date End Date Santos Em MD [address] [facility] [address] [place] [address] PCP - General Family Practice 08/12/23
--- OUTSIDE RECORDS SUMMARY | 2024-12-30 10:04 | XMS_ITS | Referral Summary ---
Author Organization [facility] Healthcare Address [address] [place] [address] Care Team Providers Care Worm Farmer Name Role Phone Julio Taylor MD Unavailable Santos Em MD Primary Care Provider Allergies [...] Overview (04/16/2018): per patient foound likely old [place] on EKG when went in for knee [...] on file Legal Sex Female 2:18 AM RENEWABLE ENERGY DIVISION MANAGER Gender Identity Not on file Sexual [...] on file Medical Devices Implanted Type Area Rn Case Manager Hospice Device Identifier Shelf Expiration Date Model / Serial / Lot Matrix Tissue Strattice Porcine Dermis L20 Cm X W10 Cm Reconstructive Sterile - [id number] Implanted:Qty: 1 on 03/03/2018 by Ananth Gomez MD at [facility] Other - see comments N/A: Abdomen Ac[employer] L[employer] Inc 11/05/2018 [id number] / / [id number] Description:Strattice Recons tructive Tissue Matrix - Abdominal Wall Insurance MEDICARE COMMERCIAL GENERIC MEDICARE [facility] MEDICARE SUPPLEMENT INSURANCE Advance Directives For more information, please contact: [phone] * Full Code (Latest Code Status on File) Date Activated Date Inactivated Comments 04/29/2018 6:43 PM 05/02/2018 4:52 PM * Full Code Date Activated Date Inactivated Comments 03/04/2018 4:20 AM 03/13/2018 6:03 PM Care Teams Worm Farmer Relationship Specialty Start Date End Date Santos Em MD [address] [place] [id number] PCP - General Family Medicine 07/17/19 Julio Taylor MD Consulting Physician Cardiology 03/13/18
--- OUTSIDE RECORDS SUMMARY | 2024-12-30 10:04 | XMS_ITS | Continuity of Care Document ---
Author Organization [facility] Address [address] [place] [address] Phone Care Team Providers Care Entertainment Musician Name Role Phone Malik Beck MD Unavailable Unavailable Advance Directives Directive Yes / No Effective Date File Name No Information Encounters Encounter Description Practice Location Reason(s) For Visit Diagnoses Date Provider Providers Copied on Encounter [facility], [address], [place], [place], [address], tel:[phone] [facility] No Information 5 Kiran Gan. [address] [place] [address], [facility], . tel:[phone] Referring Provider: Honorio Gordon, [address] [place] [address], [address]. tel:[phone] Family History Family Member Type Diagnosis Age At Onset No Information Payers Payer name Insurance type Covered green party ID Authoriza tion(s) [place]ICARE [place] [id number] LOYAL CITIZEN [place] MDCR SUPPLEMENT CI [id number] Social History Type Description Quantity Date Captured [...]
[2024-12-30 11:55] LABS: Alanine Aminotransferase 16 U/L (6-35); Albumin Level 4.5 g/dL (3.5-5.1); Alkaline Phosphatase 80 U/L (38-126); Anion Gap 14 mmol/L (4-12); Aspartate Amino Transferase 26 U/L (14-36); Bilirubin,Total 0.4 mg/dL (0.2-1.3); Blood Urea Nitrogen 13 mg/dL (7-17); Calcium 9.7 mg/dL (8.4-10.2); Carbon Dioxide 24 mmol/L (22-30); Chloride 100 mmol/L (98-107); Estimated Glomerular Filt Rate > 60; Glucose 85 mg/dL (65-110); Potassium 4.4 mmol/L (3.4-5.0); Sodium 138 mmol/L (137-145)
[2025-01-01 01:28] LABS: CA 15-3 10 U/mL (<32)
== END 2024-12-30 09:27 | disposition home or self-care (01) ==
PROVIDERS: PCP Family Medicine; Visit Provider Internal Medicine Hematology & Oncology
DX: C50.212 Malignant neoplasm of upper-inner quadrant of left female breast (principal); Z17.0 Estrogen receptor positive status [ER+]
CPT/HCPCS: 36415; 80053; 85025; 86300

== ENCOUNTER 2025-05-17 11:50 | Outpatient (CLI) | payer MEDICARE, SELFPAY ==
[2025-05-17 12:08] LABS: Hematocrit 38.8 % (37.0-47.0); Hemoglobin 12.5 g/dL (12.0-15.0); Immature Granulocyte Percent A 0.4 % (0-0.5); Lymphocytes Absolute Auto 1.18 K/mm3 (0.9-3.2); Mean Corpuscular HGB Conc 32.2 g/dl (32-36); Mean Corpuscular Hemoglobin 30.2 pg (26-34); Mean Corpuscular Volume 93.7 fl (80-100); Nucleated Red Blood Cells Absolute Auto 0.000 K/mm3 (0.0-0.012); Nucleated Red Blood Cells Perc 0.0 % (0.0-0.2); Platelet Count Result 310 k/mm3 (150-375); Red Blood Count 4.14 M/mm3 (4.2-5.4); White Blood Count 5.6 K/mm3 (4.5-10.0)
--- OUTSIDE RECORDS SUMMARY | 2025-05-17 12:30 | XMS_ITS | Clinical Summary ---
Author Organization [facility] [employer] Address [address] [place] [address] Care Team Providers Care 911 Telecommunicator Name Role Phone Vance Moreno MD Unavailable [phone] Santos Em MD Primary Care Provider [phone] Source Comments [facility] [employer],non-owned Affiliates and Associated Physician Practices is amultiple site organization consisting of ambulatory clinics and hospital sitesin [place], [place], [place] and [place]. This disclosure is being madepursuant to the Care Everywhere program and may not contain all information available regarding this patient. Last updated 18.[facility] [employer] Allergies No known active allergies Medications * Be aware that medications may not be up to date on this document. Alwaysverify current medications with the patient. Calcium Carbonate-Vitami n D (CALCIUM + D PO) Take 600 mg by mouth once daily 500 units of d3 Active Glucosamine-Tonio droit-Vit C-Mn (GLUCOSAMINE CHONDR 1500 COMPLX PO) Take 1 Tab by mouth 2 times daily Active multivitamin daily (THERAGRAN) tablet Take 1 Tab by mouth daily with food Active ondansetron, disintegrating, (ZOFRAN ODT) 4 MG tablet Take 1 tablet by mouth every 6 hours as needed for Nausea/Vomiti ng Allow tablet to dissolve on the tongue 30 tablet 0 Active HYDROcodone-acet aminophen (NORCO) 10-325 MG tabletIndication s:Aftercare following left knee joint replacement surgery Take 0.5-1 tablets by mouth every 6 hours as needed 28 tablet 0 Active Active Problems Problem Noted Date Diagnosed Date History of colon cancer 02/03/2019 History of uterine cancer 02/03/2019 Major depression, chronic 02/03/2019 Status post colostomy 02/03/2019 Primary osteoarthritis of left knee 11/24/2018 Status post right knee replacement 11/24/2018 Atrial fibrillation with RVR 11/24/2018 H/O acute myocardial infarction 04/16/2018 Overview (11/24/2018): Overview: per patient foound likely old [place] on EKG when went in for knee surgery. Social History Tobacco Use Types Packs/Day Years Used Date Smoking Tobacco: Never Smokeless Tobacco: Never Alcohol Use Standard Drinks/Week Comments Yes 0 (1 standard drink = 0.6 oz pur e alcohol) occ Comments No Sex and Gender Information Value Date Recorded Sex Assigned at Not on file Legal Sex Female 10:03 AM DOCUMENT ANALYST Gender Identity Not on file Sexual Orientation Not on file Last Filed Vital Signs Vital Sign Reading Time Taken Comments Blood Pressure 106/55 11/12/2019 7:59 AM DOCUMENT ANALYST Pulse 83 11/12/2019 7:59 AM DOCUMENT ANALYST Temperature 36.3 C (97.3 F) 11/12/2019 7:59 AM DOCUMENT ANALYST Respiratory Rate 18 11/12/2019 7:59 AM DOCUMENT ANALYST Oxygen Saturation 93% 11/12/2019 7:59 AM DOCUMENT ANALYST Inhaled Oxygen Concentration - - Weight 58.9 kg (129 lb 12.8 oz) 020 10:03 AM DOCUMENT ANALYST Height 157.5 cm (5' 2) 11/10/2019 10:0 3 AM DOCUMENT ANALYST Body Mass Index 23.74 11/10/2019 10:03 AM DOCUMENT ANALYST Plan of Treatment Health Maintenance Due Date Last Done Comments BONE DENSITY TESTING 1940 DTAP/TDAP/TD VACCINES (1 - Tdap) 12/24/1959 PNEUMOCOCCAL VACCINE 50+ (1 of 1 - PCV) 1990 ZOSTER VACCINE (1 of 2) 1990 Respiratory Syncytial Virus (RSV) Vaccine Pt: or over 60 yrs (1 - 1-dose 75+ series) 12/24/2015 COVID-19 VACCINE (1 - 2023-2 5 season) 2024 DEPRESSION SCREENING 10/06/2024 INFLUENZA VACCINE (#1) 2025 HEPATITIS B VACCINE Aged Out No longe [...] this topic Medical Devices Implanted Type Area Informatica Developer Device Identifier Shelf Expiration Date Model / Serial / Lot Damien Bone Firestone Hv Implanted:Qty: 1 on 09/13/2015 by Vance Moreno MD at [facility] Right: Knee [employer] 04/04/2017 [id number] / / [id number] Ty Tibial I Beam Fix Bar 67mm Implanted:Qty: 1 on 09/13/2015 by Vance Moreno MD at [facility] Right: Knee [employer] 05/05/2025 [id number] / / [id number] Butn Pat Arcom Wire Polyeth Xsm 28 X 8 Implanted:Qty: 1 on 09/13/2015 by Vance Moreno MD at [facility] Right: Knee [employer] 07/05/2020 [id number] / / [id number] Kn Ins Vangurd Fem Cocr R-Intlok 60mm Implanted:Qty: 1 on 09/13/2015 by Vance Moreno MD at [facility] Right: Knee [employer] 03/29/2025 [id number] / / [id number] Vangrd Ant Stblzd Brg 10mm X 67mm Implanted:Qty: 1 on 09/13/2015 by Vance Moreno MD at [facility] Right: Knee [employer] 03/16/2020 [id number] / / [id number] Brng [id number] Vngrd Arcm Kn Ant Stab Implanted:Qty: 1 on 11/10/2019 by Vance Moreno MD at [facility] Left: Knee Svetlana [employer] 09/21/2024 [id number] / / [id number] Cmnt Bone Djo Srg Cblt 40gm Hvisc Strl Implanted:Qty: 1 on 11/10/2019 by Vance Moreno MD at [facility] Left: Knee [employer] 05/17/2021 [id number] / / [id number] Cmpnt Fem Kn Lt Cr Cmnt Prm Vngrd Intlk Implanted:Qty: 1 on 11/10/2019 by Vance Moreno MD at [facility] Left: Knee S[employer] 12/01/2028 [id number] / / [id number] Tray Tib 67mm Kn Cocr I Beam Implanted:Qty: 1 on 11/10/2019 by Vance Moreno MD at [facility] Left: Knee Svet[employer] 06/20/2029 [id number] / / [id number] Cmpnt Ptlr 28mm 1 Pg Wire Ascnt Arcm Kn Implanted:Qty: 1 on 11/10/2019 by Vance Moreno MD at [facility] Left: Knee Svet[employer] 10/19/2024 [id number] / / [id number] Insurance MEDICARE [employer] GENERIC MEDICARE [employer] Advance Directives Documents on File Type Date Recorded 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
--- OUTSIDE RECORDS SUMMARY | 2025-05-17 12:30 | XMS_ITS | Patient Health Record ---
Author Organization [facility] [employer] Address [address] [place] [address] Care Team Providers Care Immunochemist Name Role Phone Rufino Pressley Unavailable [phone] Reason For Referral No Information Medications Medication SIG (Take, Route, Frequency, Duration) Notes Start Date End Date Status traMADol HCl 50 MG Oral A ctive Meloxicam 15 MG Oral Acti ve HYDROcodone-Acetaminophen 5-325 MG Oral Active Sertraline HCl 50 MG Oral Active Citalopram Hydrobromide 10 MG Oral Active Metoprolol Tartrate 50 MG Oral Active LORazepam 0.5 MG Oral Act agustin Ondansetron HCl 8 MG Oral Active Plan Of Treatment No Information Insurance Providers Payer Name Payer Address Payer Phone Subscriber Number Group Number Insured Name Patient Relationship to Insured Coverage Start Date Coverage End Date Medicare-I l Medicare [address] [place] [id number] WILIAM CORREA Self - patient is the insured [facility] [address] [place] MDDIEGO [id number] [phone] [id number] WILIAM CORREA Self - patient is the insured
--- OUTSIDE RECORDS SUMMARY | 2025-05-17 12:30 | XMS_ITS | Clinical Summary ---
Author Organization [facility] Address [address] [place] [address] Care Team Providers Care Oncology Social Worker Name Role Phone Julio Taylor MD Unavailable [phone] Santos Em MD Primary Care Provider Allergies [...] Overview (04/16/2018): per patient foound likely old [place] on EKG when went in for knee [...] Rectal adenocarcinoma - (Added by TW Conv) [place] (myocardial infarction) (HCC) per patient foound likely old [place] on EKG when went in for knee [...] on file Legal Sex Female 2:18 AM GENERAL OFFICE WORKER Gender Identity Not on file Sexual Orientation [...] 6:37 PM CDT Height 156.2 cm (5' 1.5) 04/29/2018 6:37 PM CDT Body Mass Index 21.73 04/29/2018 6:37 PM CDT Plan of Treatment Not on file Medical Devices Implanted Type Area Medical Supervisor Device Identifier Shelf Expiration Date Model / Serial / Lot Matrix Tissue Strattice Porcine Dermis L20 Cm X W10 Cm Reconstructive Sterile - [id number] Implanted:Qty: 1 on 03/03/2018 by Ananth Gomez MD at [facility] Other - see comments N/A: Abdomen [employer] 11/05/2018 [id number] / / [id number] Description:Strattice Recons tructive Tissue Matrix - Abdominal Wall Insurance MEDICARE COMMERCIAL GENERIC MEDICARE [facility] MEDICARE SUPPLEMENT INSURANCE Advance Directives For more information, please contact: [phone] * Full Code (Latest Code Status on File) Date Activated Date Inactivated Comments 04/29/2018 6:43 PM 05/02/2018 4:52 PM * Full Code Date Activated Date Inactivated Comments 03/04/2018 4:20 AM 03/13/2018 6:03 PM Care Teams Oncology Social Worker Relationship Specialty Start Date End Date Santos Em MD [address] [facility] [address] [place] [id number] PCP - General Family Medicine 07/17/19 Julio Taylor MD Consulting Physician Cardiology 03/13/18
--- OUTSIDE RECORDS SUMMARY | 2025-05-17 12:30 | XMS_ITS | Clinical Summary ---
Author Organization [facility] Address [address] [place] [phone] Phone Care Team Providers Care [facility] Name Role Phone Santos Em MD Primary Care Provider Allergies No known active allergies Medications multivitamin (DAILY-JUSTINE) tablet Take 1 Tablet by mouth daily. Active calcium as carbonate (CALTRATE) 1,500 mg (600 mg elemental) Tablet Take 600 mg by mouth daily. Active CHOLECALCIFEROL , VITAMIN D3, ORAL Take by mouth. Active calcium as carbonate (OS-FARIDA) 1,250 mg (500 mg elemental) tablet Take 1 Tablet by mouth daily. Active cetirizine (ZyrTEC) 10 mg tablet Take 10 mg by mouth daily. Active anastrozole (ARIMIDEX) 1 mg tablet TAKE 1 TABLET BY MOUTH DAILY FOR 30 DOSES. 90 Tablet 3 5 Active anastrozole (ARIMIDEX) 1 mg tablet TAKE 1 TABLET BY MOUTH DAILY FOR 30 DOSES 90 Tablet 6 4 04/20/20 25 Discontinued Active Problems No known active problems Encounters Date Type Department Care Team Description 05/11/2025 External Device Data [facility] ABSTRACTION Provider, Abstract 04/20/2025 External Device Data [facility] ABSTRACTION Provider, Abstract 04/20/2025 External Device Data [facility] ABSTRACTION Provider, Abstract 04/20/2025 External Device Data [facility] ABSTRACTION Provider, Abstract 04/20/2025 Refill [facility] Oncology and Hematology - [place] [facility] Julien Butt [address] [place] [phone] Ronaldo Neal MD 03/23/2025 External Device Data [facility] ABSTRACTION Provider, Abstract 03/22/2025 External Device Data [facility] ABSTRACTION Provider, Abstract 03/01/2025 External Device Data [facility] ABSTRACTION Provider, Abstract 02/23/2025 External Device Data [facility] ABSTRACTION Provider, Abstract 02/22/2025 External Device Data [facility] ABSTRACTION Provider, Abstract [...] on file Legal Sex Female 1:16 PM INSURANCE ASSOCIATE Gender Identity Not on file Sexual Orientation Not on file Last Filed Vital Signs Vital Sign Reading Time Taken Comments Blood Pressure 138/74 01/17/2025 2:24 PM CDT Pulse 58 01/17/2025 2:22 PM CDT Temperature 36.2 C (97.1 F) 01/17/2025 2:22 PM CDT Respiratory Rate 15 01/17/2025 2:22 PM CDT Oxygen Saturation 97% 01/17/2025 2:22 PM CDT Inhaled Oxygen Concentration - - Weight 59 kg (130 lb) 01/17/2025 2:22 PM CDT Height 154.9 cm (5' 1) 09/12/2022 10:38 AM INSURANCE ASSOCIATE Body Mass Index 24.56 09/12/2022 10:38 AM INSURANCE ASSOCIATE Plan of Treatment Upcoming Encounters Date Type Department Care Team (Late st Contact Info) Description 05/25/2025 11:30 AM CDT Office Visit [facility] Oncology and Hematology - [place] Julien Butt [address] [place] [phone] Ronaldo Neal MD [address] [place] [address] Health Maintenance Due Date Last Done Comments DTAP/TDAP/TD VACCINES (1 - Tdap) 12/24/1959 Traditional Medicare (ACO) Annual Wellness Visit 12/23 PNEUMOCOCCAL VACCINE 50+ YEARS (1 of 1 - PCV) 12/23/18 91 ZOSTER VACCINE (1 of 2) 1990 RSV VACCINE (60+ or ) (1 - 1-dose 75+ series) 12/24/2015 INFLUENZA VACCINE (#1) 2025 OSTEOPOROSIS SCREENING 03/31/2028 03/31/2023 Medical Devices Implanted Type Area Nutrition Representative Device Identifier Shelf Expiration Date Model / Serial / Lot Hemostatic Surgiflo 8ml W/Thrombin [id number] - [id number] Implanted:Qty: 1 on 10/12/2018 by Antonio Moreno MD at [facility] Hemostatic [employer] [id number] 02/03/2020 [id number] / / [id number] Knee,Right Insurance MEDICARE PART A AND B [facility] [place] [id number] RX [facility] Medicare Part D MEDICARE PART A AND B [facility] Advance Directives For more information, please contact: [phone] * Full Code (Latest Code Status on File) Date Activated Date Inactivated Comments 10/12/2018 6:41 AM 10/12/2018 3:11 PM * Full Code Date Activated Date Inactivated Comments 10/12/2018 5:49 AM 10/12/2018 6:41 AM Care Teams [facility] Relationship Specialty Start Date End Date Santos Em MD [address] [phone] PCP - General Family Practice 08/12/23
[2025-05-17 13:27] LABS: Alanine Aminotransferase 19 U/L (6-35); Albumin Level 4.3 g/dL (3.5-5.1); Alkaline Phosphatase 87 U/L (38-126); Anion Gap 8 mmol/L (4-12); Aspartate Amino Transferase 51 U/L (14-36); Bilirubin,Total 0.4 mg/dL (0.2-1.3); Blood Urea Nitrogen 13 mg/dL (7-17); Calcium 9.9 mg/dL (8.4-10.2); Carbon Dioxide 26 mmol/L (22-30); Chloride 100 mmol/L (98-107); Estimated Glomerular Filt Rate > 60; Glucose 86 mg/dL (65-110); Potassium 4.3 mmol/L (3.4-5.0); Sodium 134 mmol/L (137-145); Total Protein 7.9 g/dL (6.3-8.2)
== END 2025-05-17 11:51 | disposition home or self-care (01) ==
LOC: ANHLAB 11:54
PROVIDERS: PCP Family Medicine; Visit Provider Internal Medicine Hematology & Oncology
DX: C50.212 Malignant neoplasm of upper-inner quadrant of left female breast (principal); Z17.0 Estrogen receptor positive status [ER+]
CPT/HCPCS: 36415; 80053; 85025; 86300